=== PATIENT | female | born 1965 | race Caucasian/White ===

== ENCOUNTER 2020-09-15 12:08 | Outpatient (REF) | payer OTHER, SELFPAY | END 2020-09-15 12:09 | disposition home or self-care (01) | LOC: HO.WFDLDS 12:08 | PROVIDERS: Visit Provider Internal Medicine | DX: Z20.822 Contact with and (suspected) exposure to COVID-19 (principal) | CPT/HCPCS: 36415; C9803; U0003 ==

== ENCOUNTER → 2020-12-20 12:45 | Outpatient (BNVA) | payer OTHER, SELFPAY | PROVIDERS: PCP Internal Medicine; Visit Provider Physician Assistant ==

== ENCOUNTER → 2021-01-03 10:12 | Outpatient (BNVA) | payer OTHER, SELFPAY | PROVIDERS: PCP Internal Medicine; Visit Provider Surgery ==

== ENCOUNTER 2021-01-04 10:11 | Outpatient (REF) | payer OTHER, SELFPAY ==
--- NOTE | ~2021-01-04 | XR_ITS ---
EXAMINATION: XR CHEST CLINICAL INFORMATION: Obesity COMPARISON: None TECHNIQUE: 2 views of the chest were obtained. FINDINGS: The cardiac and mediastinal contours are normal. The lungs are clear. There is no pleural effusion or pneumothorax. There are mild degenerative changes of the thoracic spine. XR/XR chest 2V IMPRESSION: No evidence for acute disease in the chest.
--- NOTE | 2021-01-04 10:20 | ECG_ITS ---
Test Reason : MORBID OBESITY Blood Pressure : / mmHG Vent. Rate : 084 BPM Atrial Rate : 084 BPM P-R Int : 162 ms QRS Dur : 094 ms QT Int : 396 ms P-R-T Axes : 054 010 031 degrees QTc Int : 467 ms Normal sinus rhythm Normal ECG No previous ECGs available Referred By: Leonides Carter Electronically Signed By:AMOS VACA
[2021-01-04 10:46] LABS: MANUAL DIFF FLAG NO
[2021-01-04 11:12] LABS: Estimated Average Glucose 312 mg/dL; Hemoglobin A1c % 12.5 %
[2021-01-04 11:13] LABS: Basophils Percent Auto 0.3 % (0-2); Eosinophils Absolute Auto 0.2 X10*3/uL (0.0-0.4); Hematocrit 35.7 % (37-47); Hemoglobin 11.5 g/dl (12.0-16.0); Imm Gran Abs Auto 0.05 X10*3/uL (0.00-0.03); Imm Gran Pct Auto 0.7 % (0.0-0.4); Lymphocytes Percent Auto 28.6 % (20-40); Mean Corpuscular HGB Conc 32.2 g/dl (31.0-35.0); Mean Corpuscular Hemoglobin 26.2 pg (27.0-33.0); Mean Corpuscular Volume 81.3 fL (80-98); Mean Platelet Volume 9.9 fL (9.4-12.3); Monocytes Absolute Auto 0.5 X10*3/uL (0.1-1.2); Monocytes Percent Auto 7.2 % (2-11); Neutrophils Absolute Auto 4.2 X10*3/uL (2.0-8.3); Neutrophils Percent Auto 60.2 % (45-73); Platelet Count 238 X10*3/uL (160-400); Red Blood Count 4.39 X10*6/uL (4.20-5.50); Red Cell Distribution Width 13.7 % (11.0-16.0); White Blood Count 6.9 X10*3/uL (4.8-10.8)
[2021-01-04 11:17] LABS: Alanine Aminotransferase 23 U/L (0-31); Alkaline Phosphatase 107 U/L (39-117); Anion Gap 13 (12-20); Aspartate Amino Transferase 19 U/L (5-31); Bilirubin Total 0.4 mg/dL (0.0-1.0); Blood Urea Nitrogen 36 mg/dL (9-16); C Reactive Protein 0.56 mg/dL (< or = 0.50); Calcium 9.7 mg/dL (8.4-10.2); Carbon Dioxide 31 mmol/L (22-29); Chloride 96 mmol/L (96-108); Cholesterol 197 mg/dL; Estimated Glomerular Filt Rate 47; Glucose Random 297 mg/dL (60-115); HDL Cholesterol 47 mg/dL; Iron 67 mcg/dL (30-160); LDL Cholesterol Calculated 101 mg/dl; Percent Iron Saturation 21 % (15-50); Potassium 4.3 mmol/L (3.3-5.1); Sodium 136 mmol/L (135-145); Total Iron Binding Capacity 318 mcg/dL (228-428); Total Protein 7.1 g/dL (6.5-8.0); Triglycerides 248 mg/dL; Unsaturated Iron Binding 251 ug/dL
[2021-01-04 11:38] LABS: Ferritin 98 ng/mL (10-250); TSH reflex Free T4 0.96 uIU/mL (0.32-4.0)
[2021-01-04 11:52] LABS: Folate 10.2 ng/mL (> or = 4.0); Vitamin B12 463 pg/mL (200-900)
[2021-01-05 09:11] LABS: Insulin Level Total 35.5 uIU/mL
[2021-01-05 13:12] LABS: Calcium (PTHI) 9.8 mg/dL (8.6-10.4); PTHI 35 pg/mL (14-64)
[2021-01-06 18:16] LABS: Zinc 73 mcg/dL (60-130)
[2021-01-08 09:51] LABS: Vitamin A 97 mcg/dL (38-98)
[2021-01-10 10:06] LABS: Vitamin B1 18 nmol/L (8-30)
== END 2021-01-04 10:12 | disposition home or self-care (01) ==
LOC: HO.LAB 10:11
PROVIDERS: PCP Internal Medicine; Visit Provider Surgery
DX: Z01.818 Encounter for other preprocedural examination (principal); K21.9 Gastro-esophageal reflux disease without esophagitis; E66.01 Morbid (severe) obesity due to excess calories; I10 Essential (primary) hypertension; E78.5 Hyperlipidemia, unspecified
CPT/HCPCS: 36415; 71046; 80053; 80061; 82306; 82607; 82728; 82746; 83036; 83525; 83540; 83970; 84425; 84443; 84590; 84630; 85025; 86140; 93005

== ENCOUNTER → 2021-01-24 08:12 | Outpatient (BNVA) | payer OTHER, SELFPAY | PROVIDERS: PCP Internal Medicine; Visit Provider Dietitian, Registered | DX: E66.01 Morbid (severe) obesity due to excess calories (principal); Z68.39 Body mass index [BMI] 39.0-39.9, adult | CPT/HCPCS: 97802 ==

== ENCOUNTER → 2021-01-25 08:27 | Outpatient (BNVA) | payer OTHER, SELFPAY | PROVIDERS: PCP Internal Medicine; Visit Provider Surgery ==

== ENCOUNTER 2021-01-26 08:49 | Outpatient (REF) | payer OTHER, SELFPAY ==
--- NOTE | ~2021-01-26 | US_ITS ---
EXAMINATION: US COMPLETE ABDOMEN WITH LIVER ELASTOGRAPHY CLINICAL INFORMATION: Morbid obesity COMPARISON: None. TECHNIQUE: Real-time imaging of the abdominal viscera. Noninvasive ultrasound liver fibrosis assessment is performed using Dagoberto ElastPQ point quantification shear wave elastography (pSWE) with a C5-2 MHz transducer. Multiple elastography samples are obtained. FINDINGS: PANCREAS: Normal. The visualized pancreatic head and body are normal in appearance. The remainder of the pancreas is obscured from visualization by the overlying bowel gas. ABDOMINAL AORTA: The proximal, middle, and distal aortic segments are normal in caliber. INFERIOR VENA CAVA: Visualized portions are normal. LIVER: There is diffuse increased echogenicity of the liver consistent with fatty infiltration. No focal lesion or intrahepatic biliary duct dilatation. The right lobe measures 19.4 cm in length. The left lobe measures 11.8 cm in length. Portal flow is hepatopedal Shear wave liver elastography median stiffness is 1.49 m/s (reference: normal median stiffness is 1.3 m/s or less). IQR/median stiffness to assess sampling precision is 0.10 (reference: good quality data set is IQR/median stiffness of 0.15 or less). GALLBLADDER: Cholesterol polyp is present. No gallbladder wall thickening or pericholecystic fluid identified. COMMON BILE DUCT: Normal in caliber measuring 0.3 cm in diameter. RIGHT KIDNEY: There is a duplicated collecting system present. No hydronephrosis. No renal calculi or focal parenchymal lesions. The kidney measures 13.4 cm in maximum dimension. LEFT KIDNEY: Normal. No hydronephrosis. No renal calculi or focal parenchymal lesions. The kidney measures 12.6 cm in maximum dimension. SPLEEN: Normal. The spleen measures 11.5 cm in maximum dimension. FREE FLUID: None. US/US abdomen comp w elastography IMPRESSION: Fatty infiltration of the liver. Gallbladder cholesterol polyp. Liver elastography: In the absence of other known clinical signs, measurements rule out compensated advanced chronic liver disease. If there are known clinical signs, further testing may be needed for confirmation. REFERENCE: Society of Radiologists in Ultrasound Liver Stiffness Thresholds (2019): LIVER STIFFNESS THRESHOLDS: *Liver Stiffness equal or less than 1.3 m/s: High probability of being normal. *Liver Stiffness less than 1.7 m/s: In the absence of other known clinical signs, rules out compensated advanced chronic liver disease. *Liver Stiffness 1.7-2.1 m/s: Suggestive of compensated advanced chronic liver disease but need further test for confirmation. *Liver Stiffness over 2.1 m/s: Rules in compensated advanced chronic liver disease. *Liver Stiffness over 2.4 m/s: Suggestive of clinically significant portal hypertension. QUALITY OF DATA SET: *IQR/Median value equal or less than 0.15 implies a quality data set. *IQR/Median value over 0.15 implies a poor quality data set. SIGNIFICANT CHANGE FROM PRIOR EXAM: Significant change if liver stiffness measurement is 10% or greater from prior exam. OTHER CONSIDERATIONS: The stage of liver fibrosis may be overestimated in the setting of acute hepatitis, liver inflammation, elevated liver function tests, hepatic vascular congestion, obstructive cholestasis, non-fasting state, and infiltrative diseases such as amyloidosis and lymphoma. In some patients with NAFLD, the liver stiffness thresholds for compensated advanced chronic liver disease may be lower. In causes other than viral hepatitis and NAFLD, liver stiffness thresholds are not well established.
--- NOTE | ~2021-01-26 | FL_ITS ---
EXAMINATION: XR UPPER GI SERIES CLINICAL INFORMATION: Morbid obesity. COMPARISON: None TECHNIQUE: Air-contrast upper GI examination. FINDINGS: There is normal apposition of the vocal cords while saying E. There is normal elevation of the soft palate while saying candy. Patient swallowed thin and thick barium without difficulty. Half-inch barium tablet passed readily without evidence of esophageal stricture. No nasopharyngeal reflux or tracheal aspiration was elicited. No Zenker's diverticulum or cricopharyngeal hypertrophy is seen. There is normal esophageal motility without mucosal abnormality. No hiatal hernia. No gastroesophageal reflux was elicited including with water siphon test. The stomach appeared unremarkable with normal distensibility and no evidence of ulceration or mass. There was no delay in gastric emptying. The duodenal bulb and sweep appeared unremarkable. FLUOROSCOPY TIME: 1.9 minutes DOSE AREA PRODUCT: 15.525 Gy-cm2 (enriquez-centimeter squared) FL/FL upper GI series IMPRESSION: Normal air-contrast upper GI examination.
[2021-01-27 13:37] LABS: H Pylori Breath Test NOT DETECTED (NOT DETECTED)
== END 2021-01-26 08:50 | disposition home or self-care (01) ==
LOC: HO.US 08:49
PROVIDERS: Physician Assistant; Visit Provider Surgery
DX: Z01.818 Encounter for other preprocedural examination (principal); E66.01 Morbid (severe) obesity due to excess calories; K21.9 Gastro-esophageal reflux disease without esophagitis; I10 Essential (primary) hypertension; E78.5 Hyperlipidemia, unspecified
CPT/HCPCS: 74240; 76705; 76981; 83013; 99211

== ENCOUNTER → 2021-02-16 07:53 | Outpatient (BNVA) | payer OTHER, SELFPAY | PROVIDERS: PCP Internal Medicine; Visit Provider Surgery ==

== ENCOUNTER → 2021-03-03 13:05 | Outpatient (BNVA) | payer OTHER, SELFPAY | PROVIDERS: PCP Internal Medicine; Visit Provider Physician Assistant ==

== ENCOUNTER 2021-03-08 23:45 | Inpatient (IN) | payer OTHER, SELFPAY ==
[2021-02-28 13:43] VITALS: BMI 37.3
[2021-03-02 10:10] LABS: MANUAL DIFF FLAG NO
[2021-03-02 10:20] LABS: Basophils Percent Auto 0.4 % (0-2); Eosinophils Absolute Auto 0.2 X10*3/uL (0.0-0.4); Eosinophils Percent Auto 3.2 % (0-4); Hematocrit 32.7 % (37-47); Hemoglobin 10.9 g/dl (12.0-16.0); Imm Gran Abs Auto 0.01 X10*3/uL (0.00-0.03); Imm Gran Pct Auto 0.2 % (0.0-0.4); Lymphocytes Percent Auto 35.3 % (20-40); Mean Corpuscular HGB Conc 33.3 g/dl (31.0-35.0); Mean Corpuscular Hemoglobin 27.7 pg (27.0-33.0); Mean Platelet Volume 9.8 fL (9.4-12.3); Monocytes Absolute Auto 0.4 X10*3/uL (0.1-1.2); Monocytes Percent Auto 7.7 % (2-11); Neutrophils Percent Auto 53.2 % (45-73); Platelet Count 238 X10*3/uL (160-400); Red Blood Count 3.94 X10*6/uL (4.20-5.50); White Blood Count 5.6 X10*3/uL (4.8-10.8)
[2021-03-02 10:24] LABS: Prothrombin Time 12.3 SEC (10.8-13.0)
[2021-03-02 10:26] LABS: Partial Thromboplastin Time 38.4 SEC (24.1-38.0)
[2021-03-02 10:36] LABS: Alanine Aminotransferase 26 U/L (0-31); Albumin Level 4.1 g/dL (3.5-5.0); Alkaline Phosphatase 74 U/L (39-117); Anion Gap 14 (12-20); Aspartate Amino Transferase 27 U/L (5-31); Bilirubin Total 0.7 mg/dL (0.0-1.0); Blood Urea Nitrogen 53 mg/dL (9-16); C Reactive Protein 0.76 mg/dL (< or = 0.50); Carbon Dioxide 28 mmol/L (22-29); Chloride 104 mmol/L (96-108); Cholesterol 146 mg/dL; Creatinine Clr Calc Pharmacy 51.7; Estimated Glomerular Filt Rate 36; Glucose Random 93 mg/dL (60-115); HDL Cholesterol 34 mg/dL; LDL Cholesterol Calculated 85 mg/dl; Potassium 4.5 mmol/L (3.3-5.1); Sodium 141 mmol/L (135-145); Triglycerides 139 mg/dL
[2021-03-02 11:02] LABS: Estimated Average Glucose 174 mg/dL; Hemoglobin A1c % 7.7 %
--- NOTE | 2021-03-08 08:43 | HO.ANESPROP2 ---
Documented by User: Nadia Mcnamara 03/08/21 08:45 HPI - Anesthesia Eval Consult details Narrative: 55yo F for Gastrectomy Sleeve, EGD, Poss Diaphragmatic Hernia, Poss Ventral Hernia, Poss open PMFSH Active Problems Active Problems: All Active Problems (Updated 03/04/21 @ 01:38 by Leonides Carter MD) Hyperthyroidism (Acute) Constipation (Acute) Obesity (Acute) BMI 38.0-38.9,adult (Acute) Preprocedural examination (Acute) GERD (gastroesophageal reflux disease) (Acute) Depression (Acute) Hyperlipidemia (Acute) Hypertension (Acute) Insulin dependent diabetes mellitus (Acute) Morbid obesity (Acute) Insomnia (Acute) Past Medical History Medical History Anemia Arthritis Asthma Chronic renal insufficiency Depression GERD (gastroesophageal reflux disease) History of neuropathy History of tachycardia Hyperlipidemia Hypertension Insomnia Insulin dependent diabetes mellitus Morbid obesity Surgical History Surgical History H/O colonoscopy History of carpal tunnel release Hx of appendectomy Hx of breast lump removal Hx of left inguinal hernia repair Hx of thumb surgery Hx of tubal ligation Social History Social History Are you a primary director of managed care to a significant other at home: No Do you presently have visiting nurse or other home services: Yes Patient Tobacco Use Status: Former Tobacco user Quit Date: age 20 Tobacco use type: Cigarette Use of substances other than those prescribed or required for medical reasons: No Have you been hit, kicked, punched, or otherwise hurt by someone within the past year? If so, by whom?: No Are you DNR?: No Advance Directives: Yes Advance Directives Information Provided: Yes (states is & will bring copy day of surgery) Advance Directives on File: No Advance Directives Date on File: 03/09/21 Recently lost weight without trying: No Eating poorly because of decreased appetite: No Nutrition Risks: No Nutritional Risk Patient : No Poor oral hygiene: No (adentulous) Meds Allergies Allergy/AdvReac Type Severity Reaction Status Date / Time lockett flavor Allergy Intermediate Hives Verified 03/09/21 13:02 morphine Allergy Intermediate bradycardia Verified 03/09/21 13:02 NSAIDS (Non-Steroidal Allergy Intermediate tachycardia Verified 03/09/21 13:02 Anti-Inflamma Home Medications Medication Instructions Recorded Confirmed Last Taken Type atorvastatin 40 mg tablet 40 mg PO DAILY 01/03/21 03/09/21 Unknown History carvedilol 12.5 mg tablet 12.5 mg PO BID 01/03/21 03/09/21 Unknown History citalopram 40 mg tablet 40 mg PO DAILY 01/03/21 03/09/21 03/09/21 10:00 History insulin glargine 100 unit/mL (3 10 unit SUBCUT BID 01/03/21 03/09/21 Unknown History mL) subcutaneous pen melatonin 5 mg capsule See Rx Instructions PO .COMPLEX 01/03/21 03/09/21 Unknown History montelukast 10 mg tablet 10 mg PO BEDTIME 01/03/21 03/09/21 Unknown History cyclobenzaprine 10 mg PO BID 02/28/21 03/09/21 Unknown History Lantus Solostar U-100 Insulin 03/09/21 03/02/21 History olmesartan 1 tab PO DAILY 03/09/21 03/09/21 Unknown History Exam Exam Date and Time: March 08, 2021 0843 Height,Weight and Vital Signs: Height 5 ft 5.5 in Weight 103.419 kg Pertinent Lab Results Pertinent Lab Results: Laboratory Tests 03/02/21 03/02/21 03/02/21 09:40 09:40 09:40 WBC 5.6 RBC 3.94 L Hgb 10.9 L Hct 32.7 L MCV 83.0 MCH 27.7 MCHC 33.3 RDW 15.0 Plt Count 238 MPV 9.8 Immature Gran % (Auto) 0.2 Neut % (Auto) 53.2 Lymph % (Auto) 35.3 Imperial % (Auto) 7.7 Eos % (Auto) 3.2 Baso % (Auto) 0.4 Lymph # (Auto) 2.0 Imperial # (Auto) 0.4 Eos # (Auto) 0.2 Baso # (Auto) 0.0 Abs Immat Gran (auto) 0.01 Absolute Neuts (auto) 3.0 Absolute Nucleated RBC 0.000 Nucleated RBC % (auto) 0.0 PT 12.3 INR 1.0 APTT 38.4 H Sodium 141 Potassium 4.5 Chloride 104 Carbon Dioxide 28 Anion Gap 14 BUN 53 H Creatinine 1.50 H Estim Creat Clear Calc 51.7 Estimated GFR 36 Random Glucose 93 D Estimat Average Glucose Hemoglobin A1c % Total Insulin Calcium 10.0 Total Bilirubin 0.7 AST 27 D ALT 26 Alkaline Phosphatase 74 D C-Reactive Protein 0.76 H Total Protein 7.0 Albumin 4.1 Triglycerides 139 Cholesterol 146 D LDL Cholesterol, Calc 85 HDL Cholesterol 34 D TSH 0.10 L Free T4 1.10 Blood Type Antibody Screen 03/02/21 03/02/21 03/02/21 09:40 09:40 09:40 WBC RBC Hgb Hct MCV MCH MCHC RDW Plt Count MPV Immature Gran % (Auto) Neut % (Auto) Lymph % (Auto) Imperial % (Auto) Eos % (Auto) Baso % (Auto) Lymph # (Auto) Imperial # (Auto) Eos # (Auto) Baso # (Auto) Abs Immat Gran (auto) Absolute Neuts (auto) Absolute Nucleated RBC Nucleated RBC % (auto) PT INR APTT Sodium Potassium Chloride Carbon Dioxide Anion Gap BUN Creatinine Estim Creat Clear Calc Estimated GFR Random Glucose Estimat Average Glucose 174 Hemoglobin A1c % 7.7 Total Insulin 7.0 Calcium Total Bilirubin AST ALT Alkaline Phosphatase C-Reactive Protein Total Protein Albumin Triglycerides Cholesterol LDL Cholesterol, Calc HDL Cholesterol TSH Free T4 Blood Type O Positive Antibody Screen NEGATIVE Narrative Narrative: EKG 12/2020 Vent. Rate : 084 BPM Atrial Rate : 084 BPM P-R Int : 162 ms QRS Dur : 094 ms QT Int : 396 ms P-R-T Axes : 054 010 031 degrees QTc Int : 467 ms Normal sinus rhythm Normal ECG No previous ECGs available Assessment and Plan Assessment Anesthesia Assessment: Chart Reviewed Documented by User: Jon Broderick MD 03/09/21 14:08 [facility] Past Medical History Medical History Anemia Arthritis Asthma Chronic renal insufficiency Depression GERD (gastroesophageal reflux disease) History of neuropathy History of tachycardia Hyperlipidemia Hypertension Insomnia Insulin dependent diabetes mellitus Morbid obesity Surgical History Surgical History H/O colonoscopy History of carpal tunnel release Hx of appendectomy Hx of breast lump removal Hx of left inguinal hernia repair Hx of thumb surgery Hx of tubal ligation Social History Social History Are you a primary director of managed care to a significant other at home: No Do you presently have visiting nurse or other home services: Yes Patient Tobacco Use Status: Former Tobacco user Quit Date: age 20 Tobacco use type: Cigarette Use of substances other than those prescribed or required for medical reasons: No Have you been hit, kicked, punched, or otherwise hurt by someone within the past year? If so, by whom?: No Are you DNR?: No Advance Directives: Yes Advance Directives Information Provided: Yes (states is & will bring copy day of surgery) Advance Directives on File: No Advance Directives Date on File: 03/09/21 Recently lost weight without trying: No Eating poorly because of decreased appetite: No Nutrition Risks: No Nutritional Risk Patient : No Poor oral hygiene: No (adentulous) Meds Allergies Allergy/AdvReac Type Severity Reaction Status Date / Time lockett flavor Allergy Intermediate Hives Verified 03/09/21 13:02 morphine Allergy Intermediate bradycardia Verified 03/09/21 13:02 NSAIDS (Non-Steroidal Allergy Intermediate tachycardia Verified 03/09/21 13:02 Anti-Inflamma Home Medications Medication Instructions Recorded Confirmed Last Taken Type atorvastatin 40 mg tablet 40 mg PO DAILY 01/03/21 03/09/21 Unknown History carvedilol 12.5 mg tablet 12.5 mg PO BID 01/03/21 03/09/21 Unknown History citalopram 40 mg tablet 40 mg PO DAILY 01/03/21 03/09/21 03/09/21 10:00 History insulin glargine 100 unit/mL (3 10 unit SUBCUT BID 01/03/21 03/09/21 Unknown History mL) subcutaneous pen melatonin 5 mg capsule See Rx Instructions PO .COMPLEX 01/03/21 03/09/21 Unknown History montelukast 10 mg tablet 10 mg PO BEDTIME 01/03/21 03/09/21 Unknown History cyclobenzaprine 10 mg PO BID 02/28/21 03/09/21 Unknown History Lantus Solostar U-100 Insulin 03/09/21 03/02/21 History olmesartan 1 tab PO DAILY 03/09/21 03/09/21 Unknown History Exam Airway Mallampati Class: II TM Dist: >3cm Neck ROM: Full Heart: RRR Lungs: NL Assessment and Plan Assessment Anesthesia Assessment: Anesthesia Plan Discussed and Chart Reviewed Final Anesthetic Review NPO: Yes ASA Class: III Final Preanesthetic Review: No Changes in Pt Med Stat, Meds/Allgs Chart Reviewed, Consent Obtained/Reviewed and Anes Risks/Benef Reviewed Patient Risk: High Procedure Risk: Low Anesthetic Plan Anesthetic Plan: GA Disposition: Standard PACU
--- NOTE | 2021-03-08 23:43 | MHC.SHP ---
Pre-Procedural Eval Section A Date of Service: 03/08/21 The patient is an INPATIENT: Yes The History & Physical has been completed within 30 days and I have reviewed it.: Yes Section B Chief Complaint: Morbid Severe Obesity Details of Present Illness: obesity Relevant Family History (Specify if Yes): No Relevant Social History: None Present Medications: None Medical History: No relevant PMH History of Previous Operations: No relevant previous surgery Allergies: Allergies Allergy/AdvReac Type Severity Reaction Status Date / Time lockett flavor Allergy Intermediate Hives Verified 02/28/21 12:02 morphine Allergy Intermediate bradycardia Verified 02/28/21 12:02 NSAIDS (Non-Steroidal Allergy Intermediate tachycardia Verified 02/28/21 12:02 Anti-Inflamma Review of Systems Sugical H&P ROS: Negative: Constitution, Cardiovascular, Respiratory, Neurological, Psychiatric, Hem-Onc, Allergic/Immunologic, Gastrointestinal, Genitourinary, Musculoskeletal, Integumentary, Endocrine and Eyes/Ears/Nose/Throat Exam Surgical H&P Exam: Normal: HEENT, Normal: Heart, Normal: Lungs, Normal: Extremities, Normal: Abdomen, Normal: Skin and Normal: Neurological Plan Diagnosis/Plan: Unchanged I have reviewed the history and physical and performed a pertinent physical examination on my patient. No changes have occurred unless specified.
[2021-03-09] VITALS (11 sets, daily range): BP systolic 150–183; BP diastolic 81–100; PULSE 72–91; RESP 14–18; TEMP 35.7–36.6; O2SAT 97–100
[2021-03-09 13:36] LABS: COVID-19 Test Negative (Negative); IDNOW Serial# 9DD0AD1C
[2021-03-09 13:55] LABS: Glucose, Whole Blood 71 mg/dL (60-115)
[2021-03-09] MEDS: Lactated Ringers 1,000 ML 100 ML IVCONT (14:03)
[2021-03-09] MEDS: Lactated Ringers 1,000 ML 999 ML IV (14:03)
--- NOTE | 2021-03-09 15:02 | P.BOP_ITS ---
Brief Operative Note Date of Service: 03/09/21 Pre-op diagnosis: Severe obesity and comorbidities (see below) Post-op diagnosis: same (& diaphragmatic hernia) Procedure: INITIAL PATIENT BMI ON PRESENTATION AT OUR OFFICE: 41.5 kg/m2 LAST BMI BEFORE SURGERY: 37.7 kg/m2 COMORBIDITIES: Insulin dependent diabetes, hypertension, hyperlipidemia, GERD, depression, insomnia, liver fibrosis, liver steatosis The patient participated in an intensive weekly lifestyle intervention and exercise program during which the patient has lost between the initial office visit and the last preoperative visit 28.9lbs, or 11.21% of initial actual body weight. The patient met the BMI-criteria for bariatric surgery based on the BMI on initial presentation. The patient should not be penalized for achieving such weight loss because it is not sustainable long-term without surgical intervention and it was achieved in preparation for bariatric surgery under my direction and based on my published research ([email or web address] and [email or web address]) that a 10% preoperative weight loss improves long-term weight loss after surgery and reduces perioperative complications. Insurance carriers such as [facility] have endorsed my recommendations and have included in their policies criteria to include a 10% preoperative weight loss requirement. PROCEDURE: Esophago-gastroscopy, laparoscopic repair of incarcerated diaphragmatic hernia, laparoscopic lysis of adhesions, laparoscopic sleeve gastrectomy and laparoscopic gastropexy INDICATIONS: This is a 55 year-old female who was electively scheduled for laparoscopic, possibly open sleeve gastrectomy. The risks and complications of the procedure were discussed with the patient in advance, particularly the possibility of ; pulmonary embolism; staple line leak; bleeding; GERD; cardiac, pulmonary, or renal complications; as well as long-term problems such as insufficient weight loss, vitamin deficiency, strictures, or ulcers. The patient understood all the risks, and was in agreement to proceed with surgery. DESCRIPTION OF PROCEDURE: After informed consent was obtained from the patient, the patient was given preoperative antibiotics, and was transferred to the operating room. After successful induction of general anesthesia, a Taylor catheter and pneumatic compressive devices were placed on both lower extremities. An upper endoscopy was performed next. The oropharynx and esophagus appeared to be within normal limits. There was a diaphragmatic hernia present that was not reported at the preoperative upper GI. The stomach was entered. Then after all fluid and air were suctioned and the stomach was fully decompressed, the scope was withdrawn and secured in the mid esophagus. The patient was then prepped and draped in the usual sterile manner, and abdominal access was established at the right upper quadrant with the Charly technique. A 12 mm blunt port was inserted, and the abdomen was insufflated with CO2 to a pressure of 15 mmHg. Under direct visualization, additional ports were placed, specifically two 5 mm Versi-step ports to the left upper quadrant, and a 5 mm Versi-Step port to the right upper quadrant. 1% lidocaine plan was used to infiltrate all port sites as well as all fascia defects. Following that, the patient was placed in a steep reverse Trendelenburg position. An additional 5 mm port was placed to the right flank for the Mediflex retractor that was used to retract the left lobe of the liver. The gastro-esophageal fat pad was opened with the ultrasonic device (Thunderbeat, Olympus) and the anterior esophagus and hiatus were exposed. The angle of His was opened with the ultrasonic device the fundus of the stomach from any diaphragmatic and splenic attachments. I then opened the gastrocolic ligament between the transverse colon and the greater curvature of the stomach with the ultrasonic device to enter the lesser sac and facilitate the ligation of the short gastric vessels. I started at a mid-point along the greater curvature and using the Thunderbeat, all short gastric vessels were divided all the way to the angle of His until the left keven was completely dissected at its entirety. I then divided the gastro-colic ligament distally to a distance of about 3-4 cm proximal to the esophagus. There were extensive congenital adhesions between the pancreas and posterior gastric wall. Those were lysed completely with the ultrasonic device. Adhesiolysis took approximately 45 min to complete. There was an obvious significant-sized hiatal hernia. I continued dissecting along the hiatus toward the left keven and the angle of His. I fully mobilized the fat pad that was incarcerated in the hernia. I then continued by dissecting even further into the posterior retro-esophageal space all the way to the angle of His. I continued to mobilize the esophagus into the mediastinum circumferentially. Both vagal nerves were seen and preserved. A large vessel at the pars flaccida was preserved. At that point, I was able to have at least 3 to 5 cm of esophagus into the abdomen. After I completely mobilized the esophagus from both the left and right keven and I had a good mobilization of the esophagus circumferentially, I closed the hernia defect with two interrupted #0 Surgidac sutures using the Endo Stitch device, one of which was placed posterior and one anterior to the esophagus. The stomach was then divided transversely with one Endo TOMI-45 purple, one TOMI- 45 orange and four TOMI-60 articulating orange loads using the AEON stapler and loads. Every effort was made that the gastric sleeve had a tubular shape and an even caliber throughout. Once the sleeve resection was completed, the staple line of the gastric sleeve was reinforced with Hemoclips. The resected stomach was retrieved without difficulty from the Charly port. A gastropexy was then performed in order to prevent postoperative GERD and partial gastric volvulus. Several interrupted 2.0 Surgidac sutures were placed between the sleeve's staple line and the previously divided greater omentum and gastro-colic ligament using the Endo-Stitch device. An upper endoscopy was performed. There was no narrowing at the GE junction. The scope was easily advanced all the way to the pylorus which was clearly visualized. There was no narrowing anywhere and the sleeve's caliber was even throughout. The sleeve's staple line was inspected and there was no evidence of ischemia, bleeding or dehiscence. At that point the gastroscope was withdrawn from the patient?s mouth while we were decompressing the bowel and the stomach from any remaining air. I looked into the lesser sac to see how the sleeve was situating and it was situating well. There was no bleeding from the staple line, spleen, or short gastric vessels. The Mediflex retractor was removed, and the undersurface of the liver was inspected and there was no bleeding. The patient was placed in supine position. I closed the fascial defect of the 12 mm port site with a figure of eight #1 Polysorb suture. Then 100 cc 0.25 % Marcaine plain with 10 mg of Dexamethasone were used to infiltrate the fascial closure as well as all skin incisions. At this point, the abdomen was deflated, all ports were removed under direct vision, and no bleeding was noted from any of the port sites. The skin incisions were irrigated with saline and were closed with 4-0 absorbable monofilament sutures. Steri-Strips and OpSites were used to cover all incisions. The patient was extubated and was transferred in stable condition to the recovery room for further care. I was present and performed all yanes parts of the procedure. Ms. Kwok was the assistant manager airside operations. There were no residents to assist with this case. Dimitris Carter MD, PhD, FACS Surgeon: Leonides Carter MD Anesthesia: GETA, local and other (TAP block) Was an [employer] Counter Assistant used for this Procedure?: No [employer] Counter Assistant: Chrissy Kwok Estimated blood loss (mL): 10 IV fluids (mL): 2,700 Urine output (mL): 0 (No Taylor to record) Pathology: other (Stomach) Condition: stable Disposition: PACU
--- NOTE | 2021-03-09 15:05 | PM.PNGS ---
Subjective Subjective Date of Service: 03/10/21 Interval history: Patient had mild incisional pain but was able to ambulate and use the incentive spirometer. Is tolerating phase 1 bariatric diet. Physical Exam Vital Signs: Vital Signs: Last Vital Signs Temp 97.0 F 03/09/21 13:27 Pulse 85 03/09/21 13:27 Resp 16 03/09/21 13:27 BP 169/94 H 03/09/21 13:27 Pulse Ox 99 03/09/21 13:27 Body Mass Index 37.3 GI: Inspection: Yes normal to inspection, Yes incision (clean, dry and intact) and Yes obesity Extrem: Right lower extremity: normal to inspection (no calf tenderness) Left lower extremity: normal to inspection (no calf tenderness) Progress Note: A&P Assessment and plan (1) Obesity: Status: Acute Assessment and Plan: s/p laparoscopic sleeve gastrectomy and gastropexy Doing well Check am labs. If OK, will discharge home (2) BMI 37.0-37.9, adult: Status: Acute (3) Hyperlipidemia: Status: Acute (4) GERD (gastroesophageal reflux disease): Status: Acute (5) Depression: Status: Acute (6) Hypertension: Status: Acute (7) Insulin dependent diabetes mellitus: Status: Acute (8) Insomnia: Status: Acute (9) Liver fibrosis: Status: Acute (10) Steatosis, liver: Status: Acute (11) S/P laparoscopic sleeve gastrectomy: Status: Acute (12) Status post repair of paraesophageal diaphragmatic hernia: Status: Acute (13) Diaphragmatic hernia: Status: Acute (14) Congenital intra-abdominal adhesions: Status: Acute Fall Risk Details Current Medications: Current Medications Generic Name Dose Route Start Last Admin Trade Name Freq PRN Reason Stop Dose Admin Albuterol Sulfate 2.5 mg 03/09/21 12:53 Albuterol Sulfate (0.083%) 2.5 Mg/3 Ml Vial.Neb INHALE ONCE PRN Shortness of Breath/Wheezing Hydromorphone HCl 0.25 mg 03/09/21 14:08 Hydromorphone Hcl 0.5 Mg/0.5 Ml Syringe IVPUSH Q5M PRN Pain, Severe (Pain Scale 7-10) Lactated Ringer's 1,000 mls @ 100 mls/hr 03/09/21 13:00 03/09/21 14:03 Lr IVCONT 100 mls/hr .Q10H REY Administration Promethazine HCl 12.5 mg/ 50.5 mls @ 202 mls/hr 03/09/21 14:08 Sodium Chloride IV ONCE PRN Nausea and Vomiting Ketorolac Tromethamine 15 mg 03/09/21 14:08 Ketorolac Tromethamine 15 Mg/Ml Vial IVPUSH ONCE PRN Pain, Moderate (Pain Scale 4-6 Ondansetron HCl 4 mg 03/09/21 14:08 Ondansetron Hcl 4 Mg/2 Ml Vial IVPUSH ONCE PRN Nausea and Vomiting Oxycodone HCl 5 mg 03/09/21 14:08 Oxycodone Hcl Immed Release 5 Mg Tablet PO ONCE PRN Pain, Severe (Pain Scale 7-10) Time Spent With Patient Time: Total time spent is greater than 50% in coordination of care (as documented) at patient's floor/unit and/or counseling patient: Time with patient: less than 15 minutes Procedures Date of Service Date of Service: 03/10/21 Quality Stroke Does the patient have a stroke diagnosis?: No VTE Prior VTE?: No VTE Risk Level:: Surgical - moderate VTE Device Contraindication: N/A - Device Ordered VTE Drug Contraindication: Treatment Not Indicated
--- NOTE | 2021-03-09 18:08 | P.DS_ITS ---
DS: Providers Provider Date of Service: 03/10/21 Date of admission: 03/08/21 23:45 Primary care physician: Beryl Marie MD DS: Diagnosis Discharge Diagnosis (1) Obesity: Status: Acute (2) BMI 37.0-37.9, adult: Status: Acute (3) Hyperlipidemia: Status: Acute (4) GERD (gastroesophageal reflux disease): Status: Acute (5) Depression: Status: Acute (6) Hypertension: Status: Acute (7) Insulin dependent diabetes mellitus: Status: Acute (8) Insomnia: Status: Acute (9) Liver fibrosis: Status: Acute (10) Steatosis, liver: Status: Acute DS: Medications Discharge Medications Home Medications: Home Medications Medication Instructions Recorded Confirmed atorvastatin 40 mg tablet 40 mg PO DAILY 01/03/21 03/09/21 carvedilol 12.5 mg tablet 12.5 mg PO BID 01/03/21 03/09/21 citalopram 40 mg tablet 40 mg PO DAILY 01/03/21 03/09/21 insulin glargine 100 unit/mL (3 10 unit SUBCUT BID 01/03/21 03/09/21 mL) subcutaneous pen melatonin 5 mg capsule See Rx Instructions PO .COMPLEX 01/03/21 03/09/21 montelukast 10 mg tablet 10 mg PO BEDTIME 01/03/21 03/09/21 cyclobenzaprine 10 mg PO BID 02/28/21 03/09/21 Lantus Solostar U-100 Insulin 03/09/21 olmesartan 1 tab PO DAILY 03/09/21 03/09/21 Previous Rx's Medication Instructions Recorded ondansetron HCl 4 mg tablet 4 mg PO Q12H #20 tab 02/27/21 pantoprazole 40 mg tablet,delayed 40 mg PO DAILY #30 tab 02/27/21 release sucralfate 100 mg/mL oral 10 ml PO BID #400 ml 02/27/21 suspension DS: Summary Time Spent with Patient Time attestation: ADMITTING DIAGNOSIS: morbid obesity, IDDM, HTN, hyperlipidemia, GERD, diaphragmatic hernia, depression DISCHARGE DIAGNOSIS: same, s/p laparoscopic sleeve gastrectomy and repair diaphragmatic hernia PAST SURGICAL HISTORY: open appendectomy, ventral hernia repair with mesh PROCEDURE: upper endoscopy, laparoscopic sleeve gastrectomy and repair of diaphragmatic hernia hernia DISCHARGE SUMMARY: History of Present Illness: The patient is a 55 year-old woman with a BMI of 41.5 kg/m2 and associated co- morbidities as described above. The patient had extensive work-up,lost 26.3 lbs preoperatively and was electively scheduled for laparoscopic, possible open sleeve gastrectomy and gastropexy. Risks and complications of the surgery were discussed with the patient in advance, particularly the possibility of , pulmonary embolism, anastomotic leak, bleeding, bowel injury, GERD, cardiac, renal or pulmonary complications. The patient understood all the risks and was in agreement with the surgical plan. Hospital Course: The patient underwent an uneventful laparoscopic sleeve gastrectomy with gastropexy and repair of diaphragmatic hernia on the day of admission. Postoperatively, the patient was transferred to the surgical floor. The patient was on IV Acetaminophen and IV dilaudid for pain control. Patient was started on bariatric phase 1 diet POD #0. On postoperative day one, the patient was feeling well without nausea, vomiting, fevers, or tachycardia. The patient had some mild incisional pain. The abdomen was soft. On the morning of postoperative day one, the patient was continued on 1 ounce of water or ice every half hour. During the first day, the patient did fairly well, having some incisional pain, but able to ambulate adequately and to tolerate liquids well. Since the patient is doing well, we decided that the patient was ready to be discharged. The patient was given instructions to follow-up with me next week and to call my office for any fever over 101, persistent abdominal pain, nausea, vomiting, GERD, symptoms of DVT such as calf tenderness, or leg swelling, or pulmonary embolism such as chest pain or shortness of breath. The patient was al so instructed to drink 40-60 ounces of liquids per day using the 1-ounce cups. The patient was given prescription for Tylenol for pain, Zofran prn for nausea, and pantoprazole and carafate. The patient was encouraged to ambulate and use the incentive spirometer. The patient was allowed to shower, but no baths, and encouraged to stay active at home. All of these instructions were given to the patient personally. All questions were answered and the patient understood all instructions, the instructions were also given to the patient in print. Total time spent providing and/or coordinating discharge services: 15 Discharge coordination time: Less than 30 minutes Quality: Stroke Does the patient have a stroke diagnosis?: No Physical Exam Vital Signs: Vital Signs: Last Vital Signs Temp 97.0 F 03/09/21 13:27 Pulse 85 03/09/21 13:27 Resp 16 03/09/21 13:27 BP 169/94 H 03/09/21 13:27 Pulse Ox 99 03/09/21 13:27 Body Mass Index 37.3 DS: Data Data Completed and Pending Pending studies at discharge: Pending at discharge 03/09/21 17:38 Surgical [PTH] Routine Labs on day of discharge: Laboratory Results - last 24 hr 03/09/21 03/09/21 13:00 13:27 POC Glucose 71 COVID-19 (KEELY) Negative COVID-19 Clin Com See Note Discharge Plan Discharge Anticipated Discharge Date/Time: 03/10/21 12:05 Patient Disposition: Home, Self-Care Discharge Diagnosis: s/p sleeve gastrectomy Referrals: Beryl Marie MD [Primary Care Provider] - 1 Week Discharge Medications: Continued pantoprazole 40 mg tablet,delayed release (DR/EC) 40 mg PO DAILY Qty: 30 RF: 2 sucralfate 100 mg/mL suspension 10 ml PO BID Qty: 400 RF: 2 ondansetron HCl [Zofran] 4 mg tablet 4 mg PO Q12H Qty: 20 RF: 0 cyclobenzaprine 10 mg Tablet 10 mg PO BID RF: 0 olmesartan 40 mg tablet 1 tab PO DAILY RF: 0 citalopram 40 mg tablet 40 mg PO DAILY RF: 0 atorvastatin 40 mg tablet 40 mg PO DAILY RF: 0 carvedilol 12.5 mg tablet 12.5 mg PO BID RF: 0 montelukast 10 mg tablet 10 mg PO BEDTIME RF: 0 melatonin 5 mg capsule See Rx Instructions PO .COMPLEX RF: 0 Held Lantus Solostar U-100 Insulin 100 unit/mL (3 mL) insulin pen 10 unit subcut BID RF: 0 Hold Instructions: Discuss insulin dosage with Dr Carter Discontinued Lantus Solostar U-100 Insulin RF: 0 Discharge Orders: Discharge Order (Routine); Ordered 03/10/21 Ordered By: Leonides Carter Diet: other Activity on Discharge: No heavy lifting Stand Alone Forms: Patient Portal Discharge page Activity Restrictions/Additional Instructions: No tub baths, sex or returning to work until discussed at first post op appointment. No exercise, alcohol, tobacco or illegal drug use. Continue to use incentive spirometer hourly while awake. Walk in home for 5- 10 minutes every 2 hours during the first week. Continue phase 1 diet today and start phase 2 diet tomorrow morning. Follow all instructions in the bariatric handbook and call with any questions. The patient's medical history has been reviewed and they are considered low risk for post op DVT and therefore DVT prophylaxis is not considered necessary. Travel after surgery was reviewed. The patient has not disclosed any travel plans during the first 30 days after surgery and they have been advised that within the first 30 days after surgery any bus, plane, train or car travel over 2 hours in duration is contraindicated due to the possibility of developing blood clots from immobility. Any travel, needs to include periods of ambulation of 10 minutes in duration every 2 hours. The patient was instructed to discuss any plans for travel during this period with their bariatric surgeon. Care Plan Goals: weight loss Health Concerns: morbid obesity Plan of Treatment: see discharge instructions Assessment: stable pod # 1 s/p sleeve gastrectomy
[2021-03-09 18:09] LABS: Glucose, Whole Blood 120 mg/dL (60-115)
[2021-03-09] MEDS: Labetalol HCL 100 MG/20 ML VIAL 10 MG IVPUSH (18:18)
[2021-03-09] MEDS: ondansetron HCL 4 MG/2 ML VIAL IVPUSH (18:40)
[2021-03-09] MEDS: Famotidine/PF 20 MG/2 ML VIAL IVPUSH (18:44)
--- NOTE | 2021-03-09 18:48 | PC.NURSE ---
MEDICATED FOR NAUSEA
[2021-03-09 19:07] LABS: Hematocrit 32.7 % (37-47); Hemoglobin 10.8 g/dl (12.0-16.0)
[2021-03-09 19:31] LABS: Anion Gap 18 (12-20); Blood Urea Nitrogen 34 mg/dL (9-16); Calcium 9.1 mg/dL (8.4-10.2); Carbon Dioxide 21 mmol/L (22-29); Chloride 105 mmol/L (96-108); Creatinine Clr Calc Pharmacy 52.4; Estimated Glomerular Filt Rate 37; Glucose Random 132 mg/dL (60-115); Potassium 4.4 mmol/L (3.3-5.1); Sodium 140 mmol/L (135-145)
[2021-03-09 19:40] LABS: Glucose, Whole Blood 140 mg/dL (60-115)
[2021-03-09] MEDS: Lactated Ringers 1,000 ML 125 ML IVCONT (19:46)
[2021-03-09] MEDS: ceFAZolin Sodium/Dextrose,Iso 2 GM/50 ML PIGGYBACK IV (21:23)
[2021-03-09] MEDS: carvediloL 12.5 MG TABLET PO (21:29)
[2021-03-09] MEDS: Montelukast Sodium 10 MG TABLET PO (21:29)
[2021-03-09] MEDS: Cyclobenzaprine HCl 10 MG TABLET PO (21:29)
[2021-03-09 22:50] LABS: Glucose, Whole Blood 187 mg/dL (60-115)
[2021-03-09] MEDS: Insulin Lispro 100 UNIT/ML 3 ML VIAL SUBCUT (22:55)
[2021-03-10] VITALS: BP 140/74; PULSE 74; RESP 16; TEMP 36.1; O2SAT 98
[2021-03-10 02:53] LABS: Glucose, Whole Blood 201 mg/dL (60-115)
[2021-03-10] MEDS: Insulin Lispro 100 UNIT/ML 3 ML VIAL SUBCUT ×2 (03:29→07:43)
[2021-03-10] MEDS: Lactated Ringers 1,000 ML 125 ML IVCONT (03:30)
[2021-03-10] MEDS: ondansetron HCL 4 MG/2 ML VIAL IVPUSH (03:30)
[2021-03-10 04:00] VITALS: BP 123/68; PULSE 72; RESP 16; TEMP 36.4; O2SAT 98
[2021-03-10 05:53] LABS: MANUAL DIFF FLAG NO
[2021-03-10 06:06] LABS: Basophils Percent Auto 0.1 % (0-2); Hematocrit 32.1 % (37-47); Hemoglobin 10.3 g/dl (12.0-16.0); Imm Gran Abs Auto 0.03 X10*3/uL (0.00-0.03); Imm Gran Pct Auto 0.4 % (0.0-0.4); Lymphocytes Absolute Auto 0.9 X10*3/uL (1.2-4.9); Lymphocytes Percent Auto 13.2 % (20-40); Mean Corpuscular HGB Conc 32.1 g/dl (31.0-35.0); Mean Corpuscular Hemoglobin 27.1 pg (27.0-33.0); Mean Corpuscular Volume 84.5 fL (80-98); Mean Platelet Volume 9.8 fL (9.4-12.3); Monocytes Absolute Auto 0.2 X10*3/uL (0.1-1.2); Monocytes Percent Auto 2.9 % (2-11); Neutrophils Absolute Auto 5.7 X10*3/uL (2.0-8.3); Neutrophils Percent Auto 83.4 % (45-73); Platelet Count 229 X10*3/uL (160-400); White Blood Count 6.9 X10*3/uL (4.8-10.8)
[2021-03-10 06:49] LABS: Anion Gap 20 (12-20); Blood Urea Nitrogen 40 mg/dL (9-16); Calcium 8.8 mg/dL (8.4-10.2); Carbon Dioxide 19 mmol/L (22-29); Chloride 104 mmol/L (96-108); Creatinine Clr Calc Pharmacy 48.5; Estimated Glomerular Filt Rate 34; Glucose Random 200 mg/dL (60-115); Potassium 4.8 mmol/L (3.3-5.1); Sodium 138 mmol/L (135-145)
[2021-03-10 07:02] LABS: Glucose, Whole Blood 179 mg/dL (60-115)
[2021-03-10 07:58] VITALS: BP 134/69; PULSE 79; RESP 18; TEMP 36.6; O2SAT 97
--- NOTE | 2021-03-10 08:41 | HO.POSTANES ---
Post Anesthesia Evaluation Post Anesthesia Evaluation Vital Signs: Vital Signs Temp Pulse Resp BP Pulse Ox 03/10/21 07:58 97.9 F 79 18 134/69 97 03/10/21 04:00 97.6 F 72 16 123/68 98 03/10/21 00:00 96.9 F 74 16 140/74 H 98 Anesthesia: General Endotracheal-GETA Mental Status: Awake Pain Control: Satisfactory Nausea/Vomiting: None Hydration: Adequate Anesthesia-Related Issues: No Anes. Related Issues
[2021-03-10] MEDS: Famotidine/PF 20 MG/2 ML VIAL IVPUSH (09:33)
[2021-03-10 09:36] VITALS: BP 124/64; PULSE 79
[2021-03-10] MEDS: carvediloL 12.5 MG TABLET PO (09:36)
[2021-03-10] MEDS: Cyclobenzaprine HCl 10 MG TABLET PO (09:37)
--- NOTE | 2021-03-10 10:47 | HO.POSTANES ---
Post Anesthesia Evaluation Post Anesthesia Evaluation Vital Signs: Vital Signs Temp Pulse Resp BP Pulse Ox 03/10/21 09:36 79 124/64 03/10/21 07:58 97.9 F 79 18 134/69 97 03/10/21 04:00 97.6 F 72 16 123/68 98 03/10/21 00:00 96.9 F 74 16 140/74 H 98 Anesthesia: General Endotracheal-GETA Mental Status: Awake Pain Control: Satisfactory Nausea/Vomiting: None Hydration: Adequate Anesthesia-Related Issues: No Anes. Related Issues
--- NOTE | 2021-03-10 11:09 | MHC.CM.PN ---
EMR REVIEWED, PT ADMITTED S/P LAP SLEEVE GASTRECTOMY, GASTROPEXY AND HERIA REPAIR, CM MET W/PT WHO IS A&OX4, PT REPORTS SHE LIVES W/ AND SON, PT HAS NO DME HOWEVER HAS CANE/WALKER AVAILABLE AT HOME SHE MAY USE IF SHE FEELS DIZZY, PT REPORTS HER BP MEDS HAVE MADE HER DIZZY AND MOST OF THEM WERE D/C'D BY PROVIDER, PT ALSO REPORTS SHE HAS A DORMITORY MAID FOR 7HRS [facility]KLY THROUGH [employer] [facility], PCP VERIFIED AND PT REPORTS HER JOSEPH PADILLA IS HER HCP, COPY HAS BEEN REQUESTED. D/C PLAN: HOME W/RESUMP OF DORMITORY MAID & FOLLOW-UP W/SURGEON, FAMILY FOR TRANSPORT
== END 2021-03-10 11:04 | disposition home or self-care (01) | DRG 403 ==
LOC: HO.SSSA 03-09 06:28 → HO.S3 03-09 14:50
PROVIDERS: Physician Assistant; Admitting Provider Surgery; PCP Internal Medicine; Visit Provider Surgery
PROC: 0DB64Z3 Excision of Stomach, Percutaneous Endoscopic Approach, Vertical (ICD-10-PCS; CPT 43845; principal; 2021-03-09 14:10)
DX: E66.01 Morbid (severe) obesity due to excess calories (principal); K74.00 Hepatic fibrosis, unspecified; E11.9 Type 2 diabetes mellitus without complications; I10 Essential (primary) hypertension; E78.5 Hyperlipidemia, unspecified; K21.9 Gastro-esophageal reflux disease without esophagitis; F32.9 Major depressive disorder, single episode, unspecified; K76.0 Fatty (change of) liver, not elsewhere classified; G47.00 Insomnia, unspecified; K44.9 Diaphragmatic hernia without obstruction or gangrene; K66.0 Peritoneal adhesions (postprocedural) (postinfection); Z20.822 Contact with and (suspected) exposure to COVID-19; Z88.5 Allergy status to narcotic agent; Z68.37 Body mass index [BMI] 37.0-37.9, adult; Z79.4 Long term (current) use of insulin; Z88.6 Allergy status to analgesic agent; Z79.899 Other long term (current) drug therapy
CPT/HCPCS: 36415; 80048; 80053; 80061; 82947; 83036; 83525; 84439; 84443; 85014; 85018; 85025; 85610; 85730; 86140; 86850; 86900; 86901; 87635; 88307; 88342; 99024; A4649; J0131; J0690; J1100; J2250; J2370; J2405; J3010

== ENCOUNTER → 2021-03-17 07:23 | Outpatient (BNVA) | payer OTHER, SELFPAY | PROVIDERS: PCP Internal Medicine; Visit Provider Surgery | DX: E66.9 Obesity, unspecified (principal); Z68.34 Body mass index [BMI] 34.0-34.9, adult | CPT/HCPCS: 99212 ==

== ENCOUNTER → 2021-04-28 07:19 | Outpatient (BNVA) | payer OTHER, SELFPAY | PROVIDERS: PCP Internal Medicine; Visit Provider Surgery | DX: E66.9 Obesity, unspecified (principal); Z68.32 Body mass index [BMI] 32.0-32.9, adult | CPT/HCPCS: 99212 ==

== ENCOUNTER → 2021-05-26 08:13 | Outpatient (BNVA) | payer OTHER, SELFPAY | PROVIDERS: PCP Internal Medicine; Visit Provider Surgery | DX: E66.9 Obesity, unspecified (principal); Z68.31 Body mass index [BMI] 31.0-31.9, adult | CPT/HCPCS: 99212 ==

== ENCOUNTER → 2021-06-26 08:07 | Outpatient (BNVA) | payer OTHER, SELFPAY | PROVIDERS: PCP Internal Medicine; Visit Provider Surgery ==

== ENCOUNTER → 2021-07-06 08:03 | Outpatient (BNVA) | payer OTHER, SELFPAY | PROVIDERS: PCP Internal Medicine; Visit Provider Dietitian, Registered | DX: E66.9 Obesity, unspecified (principal) | CPT/HCPCS: 97803 ==

== ENCOUNTER → 2021-07-20 08:11 | Outpatient (BNVA) | payer OTHER, SELFPAY | PROVIDERS: PCP Internal Medicine; Referring Provider Surgery; Visit Provider Dietitian, Registered | DX: E66.9 Obesity, unspecified (principal) | CPT/HCPCS: 97803 ==

== ENCOUNTER → 2022-08-28 13:26 | Outpatient (BNVA) | payer OTHER, SELFPAY | PROVIDERS: PCP Internal Medicine; Visit Provider Surgery Vascular Surgery | DX: I83.11 Varicose veins of right lower extremity with inflammation (principal) | CPT/HCPCS: 99202 ==

== ENCOUNTER 2022-09-24 07:52 | Outpatient (REF) | payer OTHER, SELFPAY ==
--- NOTE | ~2022-09-24 | US_ITS ---
EXAMINATION: US LOWER EXTREMITY VENOUS (REFLUX EXAM), BILATERAL CLINICAL INDICATION: Chronic venous insufficiency with lower extremity varicose veins COMPARISON: None. TECHNIQUE: Color flow triplex imaging and compression Doppler was performed to evaluate both the deep and the superficial systems bilaterally. To evaluate the superficial system, the examination was performed in the upright position. Color-flow Doppler ultrasound and compression ultrasound were utilized. In addition, maneuvers were utilized to demonstrate reflux. FINDINGS: 1. DEEP VENOUS ULTRASOUND OF THE RIGHT LOWER EXTREMITY: Common Femoral Vein: Compressible, normal respiratory variation and augmented flow. Femoral Vein: Compressible, normal color flow and augmentation. Popliteal Vein: Compressible, normal augmentation. Deep Reflux: There is no evidence of reflux in the deep system in either the common femoral vein or the popliteal vein. There is no evidence of a Hicks's cyst. 2. SUPERFICIAL ULTRASOUND WITH DOPPLER OF RIGHT LOWER EXTREMITY: GREAT SAPHENOUS VEIN: Saphenofemoral Junction: 1.3 cm; Reflux: 0 ms Proximal Thigh: 0.6 cm; Reflux: 0 ms Mid Thigh: 0.5 cm; Reflux: 0 ms Above Knee: 0.5 cm; Reflux: 0 ms At Knee: 0.6 cm; Reflux: 0 ms Below Knee: 0.4 cm; Reflux: 0 ms Mid Calf: 0.4 cm; Reflux: 0 ms Ankle: 0.2 cm; Reflux: 0 ms DUPLICATED MEDIAL GREAT SAPHENOUS VEIN: Diameter: None Imaged Reflux: NA DUPLICATED LATERAL GREAT SAPHENOUS VEIN: Diameter: 0.6 cm Reflux: None SMALL SAPHENOUS VEIN: Proximal: 0.6 cm; Reflux: 0 ms Distal: 0.2 cm; Reflux: 0 ms VEIN OF GIACOMINI: None Imaged. PERFORATORS: Location: None significant Size: NA Reflux: NA VARICOSITIES: Location: Proximal thigh, knee and anterior distal calf Size: Ranging from 0.3 to 0.6 cm Reflux: Ranging from 0 ms to 1700 ms 3. DEEP VENOUS ULTRASOUND OF THE LEFT LOWER EXTREMITY: Common Femoral Vein: Compressible, normal respiratory variation and augmented flow. Femoral Vein: Compressible, normal color flow and augmentation. Popliteal Vein: Compressible, normal augmentation. Deep Reflux: There is no evidence of reflux in the deep system in either the common femoral vein or the popliteal vein. There is no evidence of a Hicks's cyst. 4. SUPERFICIAL ULTRASOUND WITH DOPPLER OF LEFT LOWER EXTREMITY: GREAT SAPHENOUS VEIN: Saphenofemoral Junction: 1.2 cm; Reflux: 0 ms Proximal Thigh: 0.5 cm; Reflux: 0 ms Mid Thigh: 0.5 cm; Reflux: 0 ms Above Knee: 0.4 cm; Reflux: 0 ms At Knee: 0.5 cm; Reflux: 0 ms Below Knee: 0.2 cm; Reflux: 0 ms Mid Calf: 0.2 cm; Reflux: 0 ms Ankle: 0.3 cm; Reflux: 0 ms DUPLICATED MEDIAL GREAT SAPHENOUS VEIN: Diameter: None Imaged Reflux: NA DUPLICATED LATERAL GREAT SAPHENOUS VEIN: Diameter: 0.6 cm Reflux: None SMALL SAPHENOUS VEIN: Proximal: 0.9 cm; Reflux: 0 ms Mid: 0.3 cm; Reflux: 1188 ms Distal: 0.2 cm; Reflux: 0 ms VEIN OF GIACOMINI: None Imaged. PERFORATORS: Location: None significant Size: NA Reflux: NA VARICOSITIES: Location: Proximal thigh, knee Size: 0.3 to 0.4 cm Reflux: None US/US venous duplex LE BI IMPRESSION: Right: No significant reflux of venous insufficiency in the great saphenous vein or small saphenous vein. Small scattered varicose veins as described above Left: Focal moderate reflux in the mid small saphenous vein. No significant reflux or insufficiency throughout the remaining saphenous veins of the left lower extremity. Small varicose veins as described above
== END 2022-09-24 07:53 | disposition home or self-care (01) ==
LOC: HO.US 07:52
PROVIDERS: PCP Internal Medicine; Visit Provider Surgery Vascular Surgery
DX: I83.893 Varicose veins of bilateral lower extremities with other complications (principal)
CPT/HCPCS: 93970

== ENCOUNTER → 2022-10-18 10:54 | Outpatient (BNVA) | payer OTHER, SELFPAY | PROVIDERS: PCP Internal Medicine; Visit Provider Surgery Vascular Surgery | DX: I83.11 Varicose veins of right lower extremity with inflammation (principal); I89.0 Lymphedema, not elsewhere classified | CPT/HCPCS: 99212 ==

== ENCOUNTER 2024-02-04 15:12 | Outpatient (REF) | payer OTHER, SELFPAY | END 2024-02-04 15:13 | disposition home or self-care (01) | LOC: HO.LAB 15:12 | PROVIDERS: Visit Provider Internal Medicine | DX: R80.9 Proteinuria, unspecified (principal); N18.32 Chronic kidney disease, stage 3b | CPT/HCPCS: 36415; 82610 ==

== ENCOUNTER 2024-02-19 09:42 | Outpatient (AMB) | payer OTHER, SELFPAY ==
--- NOTE | 2024-02-19 09:57 | A.OFFVIS_ITS ---
Vital Signs 02/19/24 10:13 Height 5 ft 5 in Weight 240 lb 11.916 oz BMI 40.1 BP 128/60 Blood Pressure Location Lt brachial Position Sitting Pulse 80 Pulse Source Pulse Oximeter Pulse Oximetry (%) 97 Oxygen Delivery Method Room Air Intake Visit Reasons: colo/diarrhea Intake Note: Gay presents in office today for an initial OV (colo scrn - diarrhea) CC; Pt reports onset of sx approximately 1 year ago. Pt reports that they have been experiencing intermittent constipation and diarrhea which typically doesn't have much in the way of provoking factors. Pt reports that often her sx will be very acute and have no warning. Pt also reports however; that she does notice some correlation with lactose, as she had some lactose a few days ago which was very quickly followed by moderate to severe diarrhea. Pt is also due for a recall colo s.p. Pt believes their last colo s/p was approximately 5 years ago. Preconstruction Manager Required: No Allergies lockett flavor Allergy (Intermediate, Verified 02/19/24 10:06) Hives morphine Allergy (Intermediate, Verified 02/19/24 10:06) bradycardia NSAIDS (Non-Steroidal Anti-Inflamma Allergy (Intermediate, Verified 02/19/24 10:06) tachycardia HPI HPI colo/diarrhea: Details: 58 year old? female with past medical history of lymphedema, varicose veins, obesity, congenital intra-abdominal adhesions,s/p laparoscopic sleeve gastrectomy, paraesophageal diaphragmatic hernia repair steatosis of the liver, hyperthyroidism, GERD, depression, hyperlipidemia, hypertension, insulin- dependent diabetes is here today for pre colonoscopy screening.? Patient was sent to us by her PCP.? Colonoscopy over 5 years ago at [facility]. Patient states that she had couple polyps.? Denies any personal or family history of gastrointestinal disease or CRC.? Patient admits to have postprandial loose s tools occasionally depending on what she eats. Her symptoms started about a year ago or so, however they have gotten worse in the past few months. Patient however noticed that when she drinks milk she will have diarrhea almost immediately. Patient denies melena, hematochezia, unintentional weight loss or ribbon like stools. Patient reports occasional acid reflux depending on what she eats. Denies history of difficulty with sedation or anesthesia in the past.? Negative for history of sleep apnea.? Denies any history of cardiac, pulmonary, or hepatic disease.?? No history of infectious? diseases like hepatitis A, B, C, HIV or tuberculosis.? Patient is not on any anticoagulation PFSH Medical History Steatosis, liver BMI 37.0-37.9, adult Anemia Arthritis History of tachycardia Chronic renal insufficiency History of neuropathy Asthma Preprocedural examination BMI 38.0-38.9,adult Obesity Constipation GERD (gastroesophageal reflux disease) Depression Hyperlipidemia Hypertension Insulin dependent diabetes mellitus Morbid obesity Insomnia Surgical History H/O bariatric surgery History of sleeve gastrectomy Hx of breast lump removal Hx of appendectomy Hx of tubal ligation Hx of left inguinal hernia repair Hx of thumb surgery History of carpal tunnel release H/O colonoscopy Social History Are you a primary wound care nurse to a significant other at home: No Do you presently have visiting nurse or other home services: Yes Patient Tobacco Use Status: Former Tobacco user Tobacco use type: Cigarette Advance Directives Date on File: 03/09/21 service: No Current occupational status: unemployed Review of Systems Const Denies weight gain and Denies weight loss ENT Reports no additional complaints, Denies dysphagia and Denies odynophagia Card Reports no additional complaints Resp Reports no additional complaints GI Reports abdominal pain (LLQ, ), Denies belching, Denies melena, Reports bloating, Denies change in bowel habits, Reports constipation, Denies dysphagia, Denies excessive flatus, Denies dyspepsia, Reports heartburn, Denies diarrhea, Reports loose stools, Denies nausea, Denies odynophagia and Denies vomiting Reports no additional complaints Musc Reports no additional complaints Neuro Reports no additional complaints Psych Reports no additional complaints Endo Reports no additional complaints Physical Exam Vital Signs: Last Vital Signs Pulse 80 02/19/24 10:13 BP 128/60 02/19/24 10:13 Pulse Ox 97 02/19/24 10:13 Oxygen Delivery Method Room Air 02/19/24 10:13 BMI result Body Mass Index 40.1 Const General: healthy appearing and no acute distress Nutritional Appearance: well nourished Orientation/consciousness: patient oriented x3 Resp Effort & Inspection: normal respiratory effort, able to speak in complete sentences, no tracheal deviation and symmetric chest movement Auscultation: clear to auscultation bilaterally Cardio Rate: regular rate GI Inspection: Yes normal to inspection and No distended Palpation (GI): Soft to palpation, not firm, nontender and No hepatosplenomegaly present Auscultation: normal bowel sounds General: Yes no CVA tenderness Back/Spine/Pelvis Back: no CVA tenderness Skin General skin exam: elasticity normal, turgor normal and dry skin Neuro General: patient oriented x3 Psych Appearance: grossly normal Mental Status: mental status grossly normal Assessment & Plan Assessment & Plan (1) Screen for colon cancer: Code(s): Z12.11 - Encounter for screening for malignant neoplasm of colon Plan Patient denies any cardiac or respiratory symptoms.? As mentioned above in HPI patient has been experiencing GI issues for the past year. Mainly she reports occasional postprandial diarrhea. She does admit to be constipated. Diarrhea is provoked mainly by food. Patient admits that when she drinks milk she will have diarrhea. Avoid dietary triggers. Discussed with patient low FODMAP diet. List of food recommended as well as list of food to avoid given to patient. Patient also encouraged to avoid other dietary triggers that provoke her reflux. Avoid late night snacking. Staying upright for minimum 3 hours after meals discussed with patient. Will send her for blood work. Will check lipase, liver panel, thyroid study, vitamin B12, folate and vitamin-D levels. Patient will start taking Citrucel in the morning to help bulk stools and Senokot to help her empty her bowels. She will return in 2 months to discuss colonoscopy and upper endoscopy. Message sent to surgical schedulers to book upper endoscopy and colonoscopy for patient. Patient is agreeable to current plan of care and verbalizes understanding of instructions. She was given the opportunity to ask questions and all questions answered. Thank you for allowing me to participate in her care Orders: Orders Lipase 02/19/24 R10.9 - Unspecified abdominal pain Liver Panel 02/19/24 R74.01 - Elevation of levels of liver transaminase levels TSH reflex Free T4 02/19/24 K59.00 - Constipation, unspecified Vitamin B12 and Folate 02/19/24 R19.7 - Diarrhea, unspecified Vitamin D 25-OH (D2 and D3) 02/19/24 E55.9 - Vitamin D deficiency, unspecified Medications: New methylcellulose (laxative) (Citrucel) take it with full glass of water 500 mg PO DAILY 90 tabs 2RF K59.00 - Constipation, unspecified sennosides (Natural Senna Laxative) 17.2 mg (2 x 8.6 mg) PO BEDTIME 60 tabs 3RF constipation K59.00 - Constipation, unspecified Coding Level of Care Code New Pt Level 4 (57392) Diagnoses Screen for colon cancer Z12.11 Time Spent (min) 45 Comment 30 minutes spent with patient and additional 15 minutes spent reviewing her records
[2024-02-19 10:13] VITALS: BP 128/60; PULSE 80; O2SAT 97; BMI 40.1
== END 2024-02-19 10:44 | disposition home or self-care (01) ==
PROVIDERS: PCP Internal Medicine; Visit Provider Nurse Practitioner Family
DX: Z12.11 Encounter for screening for malignant neoplasm of colon (principal); Z01.818 Encounter for other preprocedural examination
CPT/HCPCS: 99204

== ENCOUNTER 2024-02-19 09:42 | Outpatient (REF) | payer OTHER, SELFPAY ==
[2024-02-19 12:08] LABS: Alanine Aminotransferase 13 U/L (0-31); Albumin Level 3.8 g/dL (3.5-5.0); Alkaline Phosphatase 106 U/L (39-117); Aspartate Amino Transferase 16 U/L (5-31); Bilirubin Direct 0.1 mg/dL (0.0-0.5); Bilirubin Total 0.4 mg/dL (0.0-1.0); Lipase 27 U/L (8-78); Total Protein 6.9 g/dL (6.5-8.0)
[2024-02-19 12:22] LABS: TSH reflex Free T4 1.15 uIU/mL (0.32-4.0)
[2024-02-19 12:34] LABS: Folate 8.8 ng/mL (> or = 4.0); Vitamin B12 1212 pg/mL (200-900)
[2024-02-23 16:49] LABS: Vitamin D 25-OH, D2 <4 ng/mL; Vitamin D 25-OH, D3 22 ng/mL; Vitamin D 25-OH, Total 22 ng/mL (30-100)
== END 2024-02-19 09:43 | disposition home or self-care (01) ==
LOC: HO.LAB 09:42
PROVIDERS: PCP Internal Medicine; Visit Provider Nurse Practitioner Family
DX: R10.9 Unspecified abdominal pain (principal); R74.01 Elevation of levels of liver transaminase levels; K59.00 Constipation, unspecified; E55.9 Vitamin D deficiency, unspecified; R19.7 Diarrhea, unspecified; E66.9 Obesity, unspecified
CPT/HCPCS: 36415; 80076; 82306; 82607; 82746; 83690; 84443; 99202

== ENCOUNTER 2024-04-17 09:45 | Outpatient (AMB) | payer OTHER, SELFPAY ==
--- NOTE | 2024-04-17 09:55 | A.OFFVIS_ITS ---
Vital Signs 04/17/24 09:56 Height 5 ft 5 in Weight 242 lb 8.136 oz BMI 40.4 BP 140/70 H Blood Pressure Location Lt brachial Position Sitting Pulse 66 Pulse Source Pulse Oximeter Pulse Oximetry (%) 99 Oxygen Delivery Method Room Air Intake Visit Reasons: 2 month follow IBS, discuss colo and upper endo Intake Note: Gay presents in office today to discuss possible double s/p. CC; Pt was rx'd senna and citrucel at their last visit. Pt also had lab work drawn prior to this visit. Pt reports that they are still experiencing their chronic constipation. Pt reports that they are taking their medication every other day as they are able to tolerate this better. Pt was unable to tolerate the sx associated with taking their medication every day. Pt reports having upcoming cardiac cath. Staff Forester Required: No Accompanied by: Self / Same As Patient Allergies lockett flavor Allergy (Intermediate, Verified 04/17/24 09:56) Hives morphine Allergy (Intermediate, Verified 04/17/24 09:56) bradycardia NSAIDS (Non-Steroidal Anti-Inflamma Allergy (Intermediate, Verified 04/17/24 09:56) tachycardia HPI HPI 2 month follow IBS, discuss colo and upper endo: Details: LAST VISIT Screen for colon cancer Plan Patient denies any cardiac or respiratory symptoms.? As mentioned above in HPI patient has been experiencing GI issues for the past year. Mainly she reports occasional postprandial diarrhea. She does admit to be constipated. Diarrhea is provoked mainly by food. Patient admits that when she drinks milk she will have diarrhea. Avoid dietary triggers. Discussed with patient low FODMAP diet. List of food recommended as well as list of food to avoid given to patient. Patient also encouraged to avoid other dietary triggers that provoke her reflux. Avoid late night snacking. Staying upright for minimum 3 hours after meals discussed with patient. Will send her for blood work. Will check lipase, liver panel, thyroid study, vitamin B12, folate and vitamin-D levels. Patient will start taking Citrucel in the morning to help bulk stools and Senokot to help her empty her bowels. She will return in 2 months to discuss colonoscopy and upper endoscopy. Message sent to surgical schedulers to book upper endoscopy and colonoscopy for patient. Patient is agreeable to current plan of care and verbalizes understanding of instructions. She was given the opportunity to ask questions and all questions answered. ? Thank you for allowing me to participate in her care Orders Orders Lipase 02/19/24 R10.9 Liver Panel 02/19/24 R74.01 TSH reflex Free T4 02/19/24 K59.00 Vitamin B12 and Folate 02/19/24 R19.7 Vitamin D 25-OH (D2 and D3) 02/19/24 E55.9 Medications New methylcellulose (laxative) (Citrucel) take it with full glass of water 500 mg PO DAILY 90 tabs 2RF K59.00 sennosides (Natural Senna Laxative) 17.2 mg (2 x 8.6 mg) PO BEDTIME 60 tabs 3RF constipation K59.00 TODAY'S VISIT Patient is here today for follow-up. Patient has scheduled colonoscopy, however yesterday she received the phone call from her kiln door repairer stating that she has severe coronary artery disease that was found on 1 of the studies and she needs to be sent for cardiac catheterization. Cardiac catheterization was not scheduled yet. Patient is expecting phone call. History of cardiac catheterization and stent in the past several years ago. Patient denies any chest pain or shortness of breath at this time. Patient reports that she never received fiber supplement. Patient states that she was taking Senokot, however the cause diarrhea. Patient does not take it every day. Patient admits to occasional postprandial loose stools. Denies melena, hematochezia, unintentional weight loss or ribbon like stools. Discussed with patient her lab results. [facility] Medical History Steatosis, liver BMI 37.0-37.9, adult Anemia Arthritis History of tachycardia Chronic renal insufficiency History of neuropathy Asthma Preprocedural examination BMI 38.0-38.9,adult Obesity Constipation GERD (gastroesophageal reflux disease) Depression Hyperlipidemia Hypertension Insulin dependent diabetes mellitus Morbid obesity Insomnia Surgical History H/O bariatric surgery History of sleeve gastrectomy Hx of breast lump removal Hx of appendectomy Hx of tubal ligation Hx of left inguinal hernia repair Hx of thumb surgery History of carpal tunnel release H/O colonoscopy Social History Are you a primary care provider to a significant other at home: No Do you presently have visiting nurse or other home services: Yes Patient Tobacco Use Status: Former Tobacco user Tobacco use type: Cigarette Advance Directives Date on File: 03/09/21 service: No Current occupational status: unemployed Review of Systems Const Denies weight gain and Denies weight loss ENT Reports no additional complaints, Denies dysphagia and Denies odynophagia Card Reports no additional complaints Resp Reports no additional complaints GI Reports abdominal pain (LLQ, ), Denies belching, Denies melena, Reports b loating, Denies change in bowel habits, Reports constipation, Denies dysphagia, Denies excessive flatus, Denies dyspepsia, Reports heartburn, Denies diarrhea, Reports loose stools, Denies nausea, Denies odynophagia and Denies vomiting Reports no additional complaints Musc Reports no additional complaints Neuro Reports no additional complaints Psych Reports no additional complaints Endo Reports no additional complaints Physical Exam Vital Signs: Last Vital Signs Pulse 66 04/17/24 09:56 BP 140/70 H 04/17/24 09:56 Pulse Ox 99 04/17/24 09:56 Oxygen Delivery Method Room Air 04/17/24 09:56 BMI result Body Mass Index 40.4 Const General: healthy appearing and no acute distress Nutritional Appearance: obese Orientation/consciousness: patient oriented x3 Resp Effort & Inspection: normal respiratory effort, able to speak in complete sentences, no tracheal deviation and symmetric chest movement Auscultation: clear to auscultation bilaterally Cardio Rate: regular rate GI Inspection: Yes normal to inspection and No distended Palpation (GI): Soft to palpation, not firm, nontender and No hepatosplenomegaly present Auscultation: normal bowel sounds General: Yes no CVA tenderness Back/Spine/Pelvis Back: no CVA tenderness Skin General skin exam: elasticity normal, turgor normal and dry skin Neuro General: patient oriented x3 Psych Appearance: grossly normal Mental Status: mental status grossly normal Results Reviewed Results Reviewed: Laboratory Tests 02/19/24 11:05 Total Bilirubin 0.4 AST 16 ALT 13 Lipase 27 Vitamin B12 1212 H 25-OH Vitamin D Total 22 L Folate 8.8 TSH 1.15 Assessment & Plan Assessment & Plan (1) Screen for colon cancer: Code(s): Z12.11 - Encounter for screening for malignant neoplasm of colon (2) Constipation: Code(s): K59.00 - Constipation, unspecified Qualifiers: Constipation type: slow transit constipation Qualified Code(s): K59.01 - Slow transit constipation Plan Patient has colonoscopy scheduled for July 22 as well as upper endoscopy. Patient received a phone call from her kiln door repairer's office yesterday that she will have to go for cardiac catheterization. Calcification was found in 1 of the arteries and she might need a stent. History of cardiac catheterizations with stent in the past. If this will be the case patient will need to postpone the colonoscopy until cleared by Cardiology, most likely for minimum 8 months due to antiplatelet therapy. Patient's kiln door repairer is in [place] at [facility]. Will call to see if patient can be cleared if cardiac catheterization will not require stenting we should get clearance as well. Patient will keep the appointment with me that was scheduled for after the procedure. Patient is agreeable to this plan and verbalizes understanding of instructions. She was given the opportunity to ask questions and all questions answered. Thank you for allowing me to participate in her care Medications: Refilled methylcellulose (laxative) (Citrucel) take it with full glass of water 500 mg PO DAILY 90 tabs 2RF K59.00 - Constipation, unspecified Coding Level of Care Code Est Pt Level 3 (80228) Diagnoses Screen for colon cancer Z12.11 Slow transit constipation K59.01 Constipation type: slow transit constipation Time Spent (min) 30 Comment 20 minutes spent with patient and additional 10 minutes spent reviewing her records
[2024-04-17 09:56] VITALS: BP 140/70; PULSE 66; O2SAT 99; BMI 40.4
== END 2024-04-17 12:07 | disposition home or self-care (01) ==
PROVIDERS: PCP Internal Medicine; Visit Provider Nurse Practitioner Family
DX: Z12.11 Encounter for screening for malignant neoplasm of colon (principal); K59.01 Slow transit constipation; Z01.818 Encounter for other preprocedural examination
CPT/HCPCS: 99213

== ENCOUNTER → 2024-04-17 09:45 | Outpatient (BNVA) | payer OTHER, SELFPAY | PROVIDERS: PCP Internal Medicine; Visit Provider Nurse Practitioner Family | DX: Z01.818 Encounter for other preprocedural examination (principal); K59.01 Slow transit constipation | CPT/HCPCS: 99212 ==

== ENCOUNTER 2024-08-07 11:51 | Outpatient (AMB) | payer OTHER, SELFPAY ==
[2024-08-07 11:52] VITALS: BP 156/88; PULSE 80; O2SAT 100; BMI 36.2
--- NOTE | 2024-08-07 11:52 | A.OFFVIS_ITS ---
Vital Signs 08/07/24 11:52 Height 5 ft 5 in Weight 217 lb 13.067 oz BMI 36.2 BP 156/88 H Blood Pressure Location Rt brachial Position Sitting Pulse 80 Pulse Source Pulse Oximeter Pulse Oximetry (%) 100 Oxygen Delivery Method Room Air Intake Visit Reasons: r/s from 08/05 Intake Note: ESTABLISHED PATIENT Gay presents in office today for a scheduled 4 mos FUV. Meds reviewed? Y Allergies reviewed? Y No recent surgeries? Cardiac surgery through [facility] within 2 mos. Pt had complications post cardiac cath. Any significant concerns or new changes? Normal since last visit. Pharmacy verified? [facility] for same day. Mail order through [facility] for 90 day supplies. Engineering Professionals Required: No Allergies lockett flavor Allergy (Intermediate, Verified 08/07/24 12:00) Hives morphine Allergy (Intermediate, Verified 08/07/24 12:00) bradycardia NSAIDS (Non-Steroidal Anti-Inflamma Allergy (Intermediate, Verified 08/07/24 12:00) tachycardia HPI HPI r/s from 08/05: Details: LAST VISIT: Screen for colon cancer Constipation Plan Patient has colonoscopy scheduled for July 22 as well as upper endoscopy. Patient received a phone call from her revenue integrity analyst's office yesterday that she will have to go for cardiac catheterization. Calcification was found in 1 of the arteries and she might need a stent. History of cardiac catheterizations with stent in the past. If this will be the case patient will need to postpone the colonoscopy until cleared by Cardiology, most likely for minimum 8 months due to antiplatelet therapy. Patient's revenue integrity analyst is in [place] at [facility]. Will call to see if patient can be cleared if cardiac catheterization will not require stenting we should get clearance as well. Patient will keep the appointment with me that was scheduled for after the procedure. Patient is agreeable to this plan and verbalizes understanding of instructions. She was given the opportunity to ask questions and all questions answered. ? Thank you for allowing me to participate in her care Medications Refilled methylcellulose (laxative) (Citrucel) take it with full glass of water 500 mg PO DAILY 90 tabs 2RF K59.00 TODAY'S VISIT: Patient is here today for follow-up. Patient reports that she just had cardiac catheterization done end of May that not went well. Patient end up having perforation during the procedure and had AL. Patient was admitted for few days. Stent was placed in 1 of her coronary arteries. Patient does not know much about it as she was told that this is part of a research and she is not to know if she has a stent or not. We do assume that she does as she was placed on Plavix after and 1 of the providers during her admission at the hospital told her that she has a stent. She will be following up with her revenue integrity analyst in 6 months. Currently going for cardiac rehab and is doing well. Progressively patient is getting stronger and stronger, works full-time. Denies any shortness of breath or chest pain during activity. Patient denies any melena, hematochezia, unintentional weight loss or ribbon like stools. Patient lost 27 lb since last visit, however patient reports that most of the weight she lost after her hospitalization in the beginning of June [facility] Medical History Steatosis, liver BMI 37.0-37.9, adult Anemia Arthritis History of tachycardia Chronic renal insufficiency History of neuropathy Asthma Preprocedural examination BMI 38.0-38.9,adult Obesity Constipation GERD (gastroesophageal reflux disease) Depression Hyperlipidemia Hypertension Insulin dependent diabetes mellitus Morbid obesity Insomnia Surgical History H/O bariatric surgery History of sleeve gastrectomy Hx of breast lump removal Hx of appendectomy Hx of tubal ligation Hx of left inguinal hernia repair Hx of thumb surgery History of carpal tunnel release H/O colonoscopy Social History Are you a primary pet care assistant to a significant other at home: No Do you presently have visiting nurse or other home services: Yes Patient Tobacco Use Status: Former Tobacco user Tobacco use type: Cigarette Advance Directives Date on File: 03/09/21 service: No Current occupational status: unemployed Review of Systems Const Denies weight gain and Denies weight loss ENT Reports no additional complaints, Denies dysphagia and Denies odynophagia Card Reports no additional complaints Resp Reports no additional complaints GI Denies abdominal pain, Denies belching, Denies melena, Denies bloating, Denies change in bowel habits, Denies dysphagia, Denies excessive flatus, Denies dyspepsia, Denies heartburn, Denies diarrhea, Denies loose stools, Denies nausea, Denies odynophagia and Denies vomiting Musc Reports no additional complaints Neuro Reports no additional complaints Psych Reports no additional complaints Endo Reports no additional complaints Physical Exam Vital Signs: Last Vital Signs Pulse 80 08/07/24 11:52 BP 156/88 H 08/07/24 11:52 Pulse Ox 100 08/07/24 11:52 Oxygen Delivery Method Room Air 08/07/24 11:52 BMI result Body Mass Index 36.2 Const General: healthy appearing and no acute distress Nutritional Appearance: obese Orientation/consciousness: patient oriented x3 Resp Effort & Inspection: normal respiratory effort, able to speak in complete sentences, no tracheal deviation and symmetric chest movement Auscultation: clear to auscultation bilaterally Cardio Rate: regular rate GI Inspection: Yes normal to inspection and No distended Palpation (GI): Soft to palpation, not firm, nontender and No hepatosplenomegaly present Auscultation: normal bowel sounds General: Yes no CVA tenderness Back/Spine/Pelvis Back: no CVA tenderness Skin General skin exam: elasticity normal, turgor normal and dry skin Neuro General: patient oriented x3 Psych Appearance: grossly normal Mental Status: mental status grossly normal Assessment & Plan Assessment & Plan (1) Steatosis, liver: Code(s): K76.0 - Fatty (change of) liver, not elsewhere classified Category: Medical (2) GERD (gastroesophageal reflux disease): Code(s): K21.9 - Gastro-esophageal reflux disease without esophagitis Category: Medical Qualifiers: Esophagitis presence: esophagitis presence not specified Qualified Code(s): K21.9 - Gastro-esophageal reflux disease without esophagitis (3) Constipation: Code(s): K59.00 - Constipation, unspecified Qualifiers: Constipation type: slow transit constipation Qualified Code(s): K59.01 - Slow transit constipation Plan Patient just had stent placed end of May. She started on Plavix after. Patient is unsure of what kind of stent did she get. However patient states that she was under some sort of a study that she was not told that she even had stent placed. One of the providers during her admission at the hospital told her that she does have a stent. Please call her revenue integrity analyst office [facility] in [place] to see how long she should be on Plavix before we are able to interrupt. So far patient has been on it since the beginning of June. Patient is doing cardiac greasy up at this time and will have a follow-up with her revenue integrity analyst in 6 months. I believe we should wait at least until then to send her for colonoscopy. Currently patient does not have any GI concerning symptoms. Reports that she has been feeling better, lost some weight. Patient reports that she is doing more activities now that she is able to. Coding Level of Care Code Est Pt Level 4 (28613) Complex EM visit Add On G2211 Diagnoses Steatosis, liver K76.0 Gastroesophageal reflux disease, unspecified whether esophagitis present K21.9 Esophagitis presence: esophagitis presence not specified Slow transit constipation K59.01 Constipation type: slow transit constipation Time Spent (min) 35 Comment 20 minutes spent with patient and additional 15 minutes spent reviewing her records
== END 2024-08-07 13:16 | disposition home or self-care (01) ==
PROVIDERS: PCP Internal Medicine; Visit Provider Nurse Practitioner Family
DX: K76.0 Fatty (change of) liver, not elsewhere classified (principal); K21.9 Gastro-esophageal reflux disease without esophagitis; K59.01 Slow transit constipation
CPT/HCPCS: 99214; G2211

== ENCOUNTER → 2024-08-07 11:51 | Outpatient (BNVA) | payer OTHER, SELFPAY | PROVIDERS: PCP Internal Medicine; Visit Provider Nurse Practitioner Family | DX: K76.0 Fatty (change of) liver, not elsewhere classified (principal); K21.9 Gastro-esophageal reflux disease without esophagitis; K59.01 Slow transit constipation | CPT/HCPCS: 99212 ==

== ENCOUNTER 2024-12-30 09:55 | Outpatient (AMB) | payer OTHER, SELFPAY ==
--- NOTE | 2024-12-30 10:07 | A.OFFVIS_ITS ---
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/ CAD/ recent OK 2023 Allergies lockett flavor Allergy (Intermediate, Verified 08/07/24 12:00) Hives morphine Allergy (Intermediate, Verified 08/07/24 12:00) bradycardia NSAIDS (Non-Steroidal Anti-Inflamma Allergy (Intermediate, Verified 08/07/24 1 2:00) tachycardia Medication List - Last Reconciled 12/30/24 by Victor Hugo Hart MD amlodipine 5 mg PO DAILY aspirin 81 mg PO DAILY atorvastatin 80 mg PO DAILY bisacodyl (Dulcolax (bisacodyl)) 10 mg (2 x 5 mg) PO BEDTIME blood sugar diagnostic (FreeStyle Lite Strips) As directed clopidogrel 75 mg PO DAILY cyanocobalamin (vitamin B-12) 1,000 mcg PO DAILY dapagliflozin propanediol (Farxiga) 10 mg PO DAILY dulaglutide (Trulicity) 0.75 mg subcut QWEEK famotidine 20 mg PO BID fluoxetine 20 mg PO BID melatonin orally once per day; 10 mg metformin ER 500 mg PO DAILY methocarbamol 500 mg PO BEDTIME montelukast 10 mg PO BEDTIME nitroglycerin 0.4 mg sublingual Q5M PRN olmesartan 1 tab PO DAILY simethicone (Gas Relief (simethicone)) 250 mg PO DAILY PRN sitagliptin phosphate (Januvia) 50 mg PO DAILY HPI Comments Details: Gay was referred here for cardiovascular care given that her insurance no longer provides her to be seen by her [facility] providers. Patient has somewhat complicated past medical history. She says longstanding history of palpitations for many years and had a cardiac catheterization 2007 which which time she had nonobstructive disease. Subsequently last year she started having symptoms again underwent a coronary CTA which has suggestive of coronary disease and subsequently underwent a invasive cardiac catheterization. She denies at any point having any exertional chest pain but had always symptoms of palpitations as per her. Associated with that she does have lightheadedness. Subsequent cardiac catheterization showed lesion in the proximal RCA and she was enrolled in investigational study which was blinded for her. She underwent intervention on the right coronary artery which was complicated by dissection and was told that she had mild myocardial infarction. Subsequently she developed junctional bradycardia which was persistent for few days. There was discussion about putting a pacemaker in. However subsequently after few days of observation she was discharged home with event monitor. She did not clearly understand the reason for her to undergo intervention as well as the reason not to put a pacemaker in. She was quite frustrated by overall decision making and saw her [facility] provider in August. By the time she was feeling better already. She said she took about a month to get better after the bradycardia episode and heart rate remained low for about a month. Subsequently she has been doing well. She has not had any. Now over the last month heart rate. She said this mostly happens at rest with a heart rate suddenly takes off and then it pauses and she feels lightheaded some avoidance somewhat short of breath. The symptoms have been going on for many years. She is taking all her medications. Echocardiogram done post intervention had shown basal inferior wall motion abnormality but with normal LV systolic function, this was done at [facility]. She has been taking all her medication, currently on dual antiplatelet therapy, high-intensity statin therapy. She says LDL was well optimized when checked in September, I do not have a copy of the same. She was also aggressively monitoring and managing her diabetes with last goal hemoglobin A1c at 6.4%. She has no heart failure symptoms. She denies any syncopal episodes. She says she has been trying to exercise more and has lost some weight. [facility] Medical History (Updated 12/30/24 @ 14:04 by Victor Hugo Hart MD) CAD (coronary artery disease) Steatosis, liver BMI 37.0-37.9, adult Anemia Arthritis History of tachycardia Chronic renal insufficiency History of neuropathy Asthma Preprocedural examination BMI 38.0-38.9,adult Obesity Constipation GERD (gastroesophageal reflux disease) Depression Hyperlipidemia Hypertension Insulin dependent diabetes mellitus Morbid obesity Insomnia Surgical History (Updated 12/30/24 @ 14:04 by Victor Hugo Hart MD) History of percutaneous coronary intervention H/O bariatric surgery History of sleeve gastrectomy Hx of breast lump removal Hx of appendectomy Hx of tubal ligation Hx of left inguinal hernia repair Hx of thumb surgery History of carpal tunnel release H/O colonoscopy Family History Mother Diabetes Heart disease Social History Are you a primary acute care clinical nurse specialist to a significant other at home: No Do you presently have visiting nurse or other home services: Yes Alcohol intake: never Patient Tobacco Use Status: Former Tobacco user Tobacco use type: Cigarette Advance Directives Date on File: 03/09/21 service: No Current occupational status: unemployed Review of Systems Const Denies weakness ENT Denies dizziness Card Denies chest pain, Denies chest pain with activity, Denies syncope, Denies rapid heart rate, Denies pedal edema, Denies edema, Denies leg edema, Denies lightheadedness, Reports palpitations, Denies dyspnea, Denies dyspnea on exertion and Denies orthopnea Resp Denies cough, Denies dyspnea and Denies dyspnea on exertion GI Denies hematochezia and Denies change in stool character Musc Denies abnormal gait, Denies muscle cramps, Denies muscle weakness, Denies numbness, Denies radiating pain into limb and Denies tingling Neuro Denies abnormal gait, Denies dizziness, Denies syncope, Denies numbness, Denies tingling and Denies weakness Endo Reports palpitations Physical Exam Vital Signs: Last Vital Signs Pulse 86 12/30/24 10:09 BP 122/62 12/30/24 10:09 BMI result Body Mass Index 35.9 Const General: cooperative, comfortable, no acute distress, alert, awake and Phys ically active Nutritional Appearance: obese Orientation/consciousness: patient oriented x3 Limitations: no limitations HEENT Head: Yes normocephalic and Yes atraumatic Neck Neck: Yes trachea midline, Yes supple and Yes no JVD Resp Effort & Inspection: normal respiratory effort Auscultation: clear to auscultation bilaterally Cardio Jugular venous distension: no JVD Palpation: normal PMI Rate: regular rate Rhythm: regular rhythm Heart sounds: S1 normal heart sound present, S2 normal heart sound present, no click, no gallops, no murmurs and no rubs GI Auscultation: normal bowel sounds Skin General skin exam: no rashes or lesions noted Neuro General: patient oriented x3 and no focal motor deficits Extrem General: Yes no clubbing, cyanosis or edema Psych Appearance: grossly normal Affect: Anxious affect present Office Procedures EKG Details: EKG shows normal sinus rhythm with possible left atrial enlargement with low- voltage QRS with no acute ischemic changes with no Q-waves 37590-[id number], Complete Assessment & Plan Assessment & Plan (1) CAD (coronary artery disease): Code(s): I25.10 - Atherosclerotic heart disease of [place] coronary artery without angina pectoris Category: Medical Plan: Coronary artery disease with right coronary artery percutaneous intervention in May last year for documented coronary artery disease without any obvious anginal symptoms at that point time, currently part of a clinical study. Patien t currently on dual antiplatelet therapy with aspirin and Plavix which should continue till May of 2025 or unless directed by the investigation team. The percutaneous intervention was complicated by local dissection and type for myocardial infarction. Patient was subsequent echocardiogram showed basal inferior wall motion abnormality but normal LV ejection fraction. She is currently not having any ischemic symptoms. And no further workup is indicated from that perspective. Nature of coronary artery disease and pathophysiology was discussed. Lifelong aspirin therapy beyond 1 year therapy with dual antiplatelet therapy is recommended. High-intensity statin therapy with target goal LDL less than 60 mg/dL is recommended. Advised follow-up lipid panel. Continue aggressive diabetes management goal hemoglobin A1c less than 7%, currently well optimized. Encouraged to participate in regular physical activity and weight loss program. She understands and agrees. (2) Palpitations: Code(s): R00.2 - Palpitations Category: Medical Plan: Recently increasing symptoms of palpitation which she describes rapid heart rate followed by sudden stop and then dizziness and shortness of breath. These are most suggestive of SVT. She has never had any proper diagnose he has associated with these palpitations. Will suggest a 30 day event monitor to further assess for the same. For now I would avoid any rate lowering medication till we figure out the diagnose. Less likely this represents atrial fibrillation. Will follow up in the clinic in 6 months time, sooner p.r.n.. Thank you for allowing me to partake in her care Coding Level of Care Code New Pt Level 4 (56208) Complex EM visit Add On G2211 Diagnoses CAD (coronary artery disease) I25.10 Palpitations R00.2 CPT Codes EKG - CPT: 93174-[id number], Complete ([id number])
[2024-12-30 10:09] VITALS: BP 122/62; PULSE 86; BMI 35.9
--- OUTSIDE RECORDS SUMMARY | 2024-12-30 10:53 | XMS_ITS | Clinical Summary ---
Author Organization [address] [facility] Address [address] [place] [address] Phone Care Team Providers Care Call Center Operator Name Role Phone Beryl Marie MD Primary Care Provider Allergies Active Allergy Reactions Criticality Noted Date Comments Ibuprofen 04/30/2017 Morphine 04/30/2017 Pectin 04/30/2017 Medications diclofenac (Voltaren Arthritis Pain) 1 % topical gel Apply 4 g topically 2 (two) times a day. 240 g 1 01/18/20 25 Active Encounters Date Type Department Care Team Description 11/18/2024 9:45 AM EDT Consult Orthopedic Surgery - [place] [address] [facility] [address] [place] [phone] Surinder Nieves DPM Controlled type 2 diabetes with neuropathy (CMS/HCC V24, CMS/FORMERLY [facility] V28) (Primary Dx); Left foot pain; Arthritis of both feet; Dermatophytosis, nail from Last 3 Months Surgical History Surgery Date Site/Laterality Comments APPENDECTOMY PROCEDURE:APPENDECTOMY BREAST LUMPECTOMY PROCEDURE:BREAST LUMPECTOMY;COMMENT:left breast OTHER SURGICAL HISTORY PROCEDURE:carpal tunnel left hand TUBAL LIGATION PROCEDURE:TUBAL LIGATION HERNIA REPAIR PROCEDURE:HERNIA REPAIR;COMMENT:left linguinal hernia Medical History Medical History Date Comments Diabetes mellitus (CMS/HCC V24, CMS/FORMERLY [facility] V28) DX:Diabetes mellitus (HCC) Chronic kidney disease DX:Chroni c kidney disease Anemia DX:Anemia Hypertension DX:Hypertension High cholesterol DX:High cholest tod Arthritis DX:Arthritis Depression DX:Depression Breast cancer (CMS/HCC V24, CMS/FORMERLY [facility] V28) DX:Breast cancer (HCC) Social History Tobacco Use Types Packs/Day Years Used Date Smoking Tobacco: Never Smokeless Tobacco: Never Alcohol Use Standard Drinks/Week Comments No 0 (1 standard drink = 0.6 oz pur e alcohol) Comments Unknown Sex and Gender Information Value Date Recorded Sex Assigned at Not on file Legal Sex Female 4:25 PM EST Gender Identity Not on file Sexual Orientation Not on file Obstetrics History Last Filed Vital Signs Vital Sign Reading Time Taken Comments Blood Pressure 186/75 09/11/2023 9:36 AM EST Sitting Left arm Pulse 87 09/11/2023 9:36 AM EST Temperature - - Respiratory Rate - - Oxygen Saturation - - Inhaled Oxygen Concentration - - Weight 106 kg (233 lb) 11/18/2024 9:34 AM EDT Height 166 cm (5' 5.35 ) 11/18/2024 9:3 4 AM EDT Body Mass Index 38.35 11/18/2024 9:34 AM EDT Plan of Treatment Upcoming Encounters Date Type Department Care Team (Late st Contact Info) Description 01/21/2025 10:30 AM EDT Office Visit Orthopedic Surgery - [place] [id number] [phone] Surinder Nieves, DPAvni [address] [address] Health Maintenance Due Date Last Done Comments Breast Cancer Screening 1967 Diabetes: Annual GFR (Glomerular Filtration Rate) 1967 Diabetes: Annual Foot Exam 1977 Diabetes: Annual Retina Eye Exam 1977 DTaP,Tdap,and Td Vaccines (1 - Tdap) 1986 Hepatitis B Vaccines (1 of 3 - 19+ 3-dose series) 1986 Zoster Vaccines (1 of 2) 1986 Cervical Cancer Screening: P ap Smear 1988 Pneumococcal Vaccine: 50+ Years (2 of 2 - PCV) 06/16/2019 06/16/2018 Pneumococcal Vaccine: Pediatrics (0 to 5 Years) and At-Risk Patients (6 to 64 Years) (2 of 2 - PCV) 06/16/2019 06/16/2018 COVID-19 Vaccine (2 - Pfizer risk series) 07/10/2021 06/19/2021 Cholesterol Screening (Lipid Panel) 08/09/2022 Colorectal Cancer Screening: Colonoscopy 08/09/2022 Depression Screening 08/09/2022 HIV Screening 08/09/2022 Hepatitis C Screening 08/09/2022 Social Influencers of Health Screening 08/09/2022 Diabetes: Annual Urine Albumin-Creatinine Ratio (uACR) 11/18/2024 Diabetes: Blood Sugar Contro l Test (HGBA1C) 11/18/2024 11/29/2023 Hypertension/CHF/CAD Annual BMP Blood Test 11/18/2024 Influenza Vaccine Completed 05/28/2024, 06/19/2021, 06/16/2018 HIB Vaccines Aged Out No longer eligi ble based on patient's age to complete this topic HPV Vaccines Aged Out No longer eligi ble based on patient's age to complete this topic Hepatitis A Vaccines Aged Out No long er eligible based on patient's age to complete this topic IPV Vaccines Aged Out No longer eligi ble based on patient's age to complete this topic MMR Vaccines Aged Out No longer eligi ble based on patient's age to complete this topic Meningococcal ACWY Vaccine Aged Out N o longer eligible based on patient's age to complete this topic Meningococcal B Vaccine Aged Out No l onger eligible based on patient's age to complete this topic RSV Immunization Patients Under 20 months Aged Out No longer eligible b ased on patient's age to complete this topic Varicella Vaccines Aged Out No longer eligible based on patient's age to complete this topic Procedures Procedure Name Priority Date/Time Associated Diagnosis Comments XR FOOT 3+ VIEWS BILAT Routine 11/18/2024 10:20 AM EDT Left foot pain from Last 3 Months Results * XR Foot 3+ Views bilat (11/18/2024 10:20 AM EDT) Anatomical Region Laterality Modality Lower Extremities, Foot Bilateral Computed Radiography Narrative 11/28/2024 10:45 AM EDT Bilateral foot weightbearing 3 views: Notable metatarsus adductus. ??No fractures or dislocation. ??Extensive arthritic changes in the tarsometatarsal joint. ??Enlarged osteophytic growth over the dorsal aspect of the midtarsal joints secondary to posterior compartment contracture. Surinder Nieves DPM IMG XR PROCEDURES Final Res ult from Last 3 Months Insurance * Guarantor: Gay May Account Type Relation to Patient Date of Phone Billing Address Personal/Family Self 1965 [address] [facility] [place] [address] [facility] Care Teams Call Center Operator Relationship Specialty Start Date End Date Beryl Marie MD [address] [place] [address] [address] [place] [address] PCP - General 09/12/22
--- OUTSIDE RECORDS SUMMARY | 2024-12-30 10:53 | XMS_ITS | Clinical Summary ---
Author Organization [facility] Address [address] [place] [address] Care Team Providers Care Street Light Servicer Name Role Phone Beryl Marie MD Primary Care Provider [phone] Allergies Active Allergy Reactions Criticality Noted Date Comments Saldivar Flavoring Agent (Non-Screening) 04/30/2017 Ibuprofen 04/30/2017 Morphine 04/30/2017 Medications Medication Sig Dispensed Refills Start Date End Date Status olmesartan-hydrochloro thiazide (BENICAR HCT) 40-12.5 MG per tablet Take 1 tablet by mouth daily. 0 Active montelukast (SINGULAIR) 10 MG tablet Take 1 tablet (10 mg total) by mouth every night at bedtime. 0 Active atorvastatin (LIPITOR) tablet 40 mg Take 1 tablet (40 mg total) by mouth daily. 0 Active Melatonin 5 MG CAPS Take 10 mg by mouth. 0 Active FLUoxetine (PROzac) 20 MG capsule Take 30 mg by mouth daily. 0 Active SITagliptin-metFORMIN (Janumet) 50-1000 MG per tablet Take 1 tablet by mouth daily. 0 Active carvedilol (COREG) 12.5 MG tablet Take 1 tablet (12.5 mg total) by mouth 2 (two) times a day with meals. 0 Active Dulaglutide (TRULICITY SC) Inject under the skin once a week. 0 Active metFORMIN (GLUCOPHAGE) tablet 500 mg Take 1 tablet (500 mg total) by mouth 2 (two) times a day with meals. 0 Active vitamin B-12 (CYANOCOBALAMIN) 100 MCG tablet Take 0.5 tablets (50 mcg total) by mouth daily. 0 Active amLODIPine (NORVASC) tablet 5 mg Take 1 tablet (5 mg total) by mouth daily. 0 Active Active Problems Problem Noted Date Diagnosed Date Neoplasm of left breast, [facility] tumor staging category Tis: lobular carcinoma in situ (LCIS) 04/30/2017 Social History Tobacco Use Types Packs/Day Years Used Date Smoking Tobacco: Never Smokeless Tobacco: Never Alcohol Use Standard Drinks/Week Comments No 0 (1 standard drink = 0.6 oz pur e alcohol) Sex and Gender Information Value Date Recorded Sex Assigned at Not on file Gender Identity Not on file Sexual Orientation Not on file Job Start Date Occupation Industry Not on file Not on file Not on file Last Filed Vital Signs Vital Sign Reading Time Taken Comments Blood Pressure 186/75 09/11/2023 9:36 AM EST Pulse 87 09/11/2023 9:36 AM EST Temperature 36.8 ??C (98.2 ??F) 09/11/2023 9:36 AM ES T Respiratory Rate - - Oxygen Saturation 99% 09/11/2023 9:36 AM EST Inhaled Oxygen Concentration - - Weight 105.7 kg (233 lb) 09/11/2023 9:36 AM EST Height 166.6 cm (5' 5.6 ) 03/13/2023 9:33 AM EDT Body Mass Index 38.07 03/13/2023 9:33 AM EDT Plan of Treatment Health Maintenance Due Date Last Done Comments Hepatitis B Vaccines (1 of 3 - 3-dose series) 1967 Hepatitis C Screening 1967 COVID-19 Vaccine (#1) 1972 Pneumococcal Vaccine (1 of 2 - PCV) 1973 Depression Screening 1979 Preventative Health Evaluation 1985 DTap / Tdap / Td (1 - Tdap) 1986 Shingrix-Zoster Vaccine (1 of 2) 1986 Cervical Cancer Screening (P ap Smear) 1988 Colon Cancer Screening (Colonoscopy) 2012 Breast Cancer Screening (Mammogram) 2017 Influenza Vaccine (#1) 2024 RSV Ped < 20 months Aged Out No longe r eligible based on patient's age to complete this topic Care Teams Street Light Servicer Relationship Specialty Start Date End Date Beryl Marie MD [address] [facility] [address] [place] [phone] PCP - General Internal Medicine 09/12/22
--- OUTSIDE RECORDS SUMMARY | 2024-12-30 10:53 | XMS_ITS | Clinical Summary ---
Author Organization [facility] Address [address] [address] Phone Care Team Providers Care Baggage Agent Supervisor Name Role Phone Beryl Marie MD Primary Care Provider [phone] Allergies Active Allergy Reactions Criticality Noted Date Comments Saldivar Hives 11/27/2023 Saldivar Flavoring Agent (Non-Screening) 04/30/2017 Ibuprofen 04/30/2017 Morphine 04/30/2017 Other Reaction(s): intolerant...gets sn owed Nsaids Other (see comments) 11/27/2023 Medications SITagliptin (JANUVIA) 50 MG tablet Take 25 mg by mouth 3 Active olmesartan (BENICAR) 40 MG tablet Take 40 mg by mouth 9 Active montelukast (SINGULAIR) 10 MG tablet Take 10 mg by mouth 9 Active metFORMIN (GLUCOPHAGE) 500 MG tablet Take 500 mg by mouth in the morning and 500 mg in the evening. Take with meals. 3 Active Melatonin 10 MG chewable tablet Chew 10 mg Act meng cyanocobalamin (VITAMIN B-12) 100 MCG tablet Take 50 mcg by mouth Active atorvastatin (LIPITOR) 40 MG tablet Take 80 mg by mouth 9 Active nitroglycerin (NITROSTAT) 0.4 MG SL tablet PLEASE SEE ATTACHED FOR DETAILED DIRECTIONS 4 Active methocarbamol (ROBAXIN) 500 MG tablet 4 Active Dapagliflozin Propanediol 10 MG tablet Take 10 mg by mouth 1 (one) time each day in the morning 30 tablet 11 4 Active carvedilol (COREG) 25 MG tablet Take 1 tablet (25 mg total) by mouth in the morning and 1 tablet (25 mg total) in the evening. Take with meals. 180 tablet 3 4 03/09/20 25 Active Additional Information Patient not taking.Reported on 08/17/2024 sennosides-docus ate sodium (SENOKOT-S) 8.6-50 MG tablet Take 1 tablet by mouth 1 (one) time each day Active Blood Pressure Monitoring (Adult Blood Pressure Cuff Lg) kitIndications:S tage 3b chronic kidney disease (HCC),Hypertensi on 1 each 1 (one) time each day 1 kit 4 Active clopidogrel (PLAVIX) 75 MG tablet Take 75 mg by mouth 1 (one) time each day Active famotidine (PEPCID) 20 MG tablet Take 20 mg by mouth in the morning and 20 mg in the evening. 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 Asthma 11/27/2023 Arthritis 11/27/2023 Angina of effort 11/27/2023 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 11/27/2023 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 017 Family History Medical History Relation Comments Diabetes Mother Heart disease Mother Kidney disease Mother Relation Status Comments Mother Social History Tobacco Use Types Packs/Day Years Used Date Smoking Tobacco: Former Cigarettes Tobacco Cessation:Counseling Given: Not Answered Alcohol Use Standard Drinks/Week Comments Not Currently 0 (1 standard drink = 0.6 oz pur e alcohol) Comments Unknown Sex and Gender Information Value Date Recorded Sex Assigned at Not on file Legal Sex Female 2:08 PM EST Gender Identity Not on file Sexual Orientation Not on file Last Filed Vital Signs Vital Sign Reading Time Taken Comments Blood Pressure 130/66 08/17/2024 12:57 PM EST Pulse 66 08/17/2024 12:57 PM EST Temperature - - Respiratory Rate - - Oxygen Saturation 98% 08/17/2024 12:57 PM EST Inhaled Oxygen Concentration - - Weight 98.2 kg (216 lb 9.6 oz) 08/17/2024 12:57 PM EST Height - - Body Mass Index - - Plan of Treatment Upcoming Encounters Date Type Department Care Team (Late st Contact Info) Description 02/15/2025 10:30 AM EDT Office Visit [facility] [address] [phone] Andrzej Valadez MD [address] [address] Health Maintenance Due Date Last Done Comments Breast Cancer Screening 1967 Hepatitis B Vaccine (1 of 3 - 19+ 3-dose series) 04/17 Pneumococcal Vaccine: 50+ Years (1 of 2 - PCV) 986 Colorectal Cancer Screening: Annual FOBT 2016 Colorectal Cancer Screening: Colonoscopy 2016 Colorectal Cancer Screening: Sigmoidoscopy 2016 Diabetes: Ophthalmology Exam 10/16/2023 Diabetes: Pedal Pulse Checked 10/16/2023 Diabetes: Sensory Foot Exam 10/16/2023 Diabetes: Visual Foot Exam 10/16/2023 Diabetes: Hemoglobin A1C 02/29/2024 11/29/2023 Influenza Vaccine Completed 05/28/2024 Procedures Procedure Name Priority Date/Time Associated Diagnosis Comments HEMOGLOBIN A1C Routine 11/29/2023 12:30 PM EDT from Last 3 Months or Most Recently Relevant to Health Maintenance Results * (ABNORMAL) Hemoglobin A1c (11/29/2023 12:30 PM EDT) Hemoglobin A1C 8.0(H) 4.8 - 5.6 % [facility] Comment: ? Prediabetes: 5.7 - 6.4 ? Diabetes: >6.4 ? Glycemic control for adults with diabetes: <7.0 11/29/2023 12:3 0 PM EDT 11/29/2023 Narrative [facility] - 12/05/2023 3:06 PM EDT Performed at: ??01 - [facility] [address] ??[id number] Cake Puncher: Isabel Lancaster MD, Phone: ??[phone] Andrzej Valadez MD LAB BLOOD ORDERABLES Final Result [facility] from Last 3 Months or Most Recently Relevant to Health Maintenance Insurance Medicaid [place] Care Teams Baggage Agent Supervisor Relationship Specialty Start Date End Date Beryl Marie MD [address] [place] [address] 1 [place] [address] PCP - General Internal Medicine 10/14/23
== END 2024-12-30 10:40 | disposition home or self-care (01) ==
PROVIDERS: PCP Internal Medicine; Visit Provider Internal Medicine Cardiovascular Disease
DX: I25.10 Atherosclerotic heart disease of native coronary artery without angina pectoris (principal); R00.2 Palpitations
CPT/HCPCS: 93010; 99204; G2211

== ENCOUNTER → 2024-12-30 09:55 | Outpatient (BNVA) | payer OTHER, SELFPAY | PROVIDERS: PCP Internal Medicine; Visit Provider Internal Medicine Cardiovascular Disease | DX: I25.10 Atherosclerotic heart disease of native coronary artery without angina pectoris (principal); R00.2 Palpitations | CPT/HCPCS: 93005; 99202 ==

== ENCOUNTER 2025-02-08 10:10 | Outpatient (REF) | payer OTHER, SELFPAY ==
--- OUTSIDE RECORDS SUMMARY | 2025-02-08 11:18 | XMS_ITS | Clinical Summary ---
Author Organization [facility] Address [address] [address] Phone Care Team Providers Care Press Setter Name Role Phone Beryl Marie MD Primary [...] Team (Late st Contact Info) Description 02/15/2025 Orders Only [facility] [address] [phone] Andrzej Valadez MD [address] [place] [phone] Stage 3b chronic kidney disease (HCC) 02/15/2025 10:30 AM EDT Office Visit [facility] [place] [id number] [phone] Andrzej Valadez MD [facility] [address] [address] Health Maintenance Due Date Last Done Comments [...] PM EDT Performed at: ??01 - [facility] [address] ??[id number] Household Appliance Assembler: Isabel Lancaster MD, Phone: ??[phone] us Andrzej Valadez MD LAB BLOOD ORDERABLES Final Result [facility] from Last 3 Months or Most Recently Relevant to Health Maintenance Care Teams Press Setter Relationship Specialty Start Date End Date Beryl Marie MD [address] [phone] PCP - General Internal Medicine 10/14/23
[2025-02-08 14:11] LABS: Appearance Urine Clear; Color Urine Yellow; Glucose Urine UA Negative (Negative); Leukocyte Esterase Urine Negative (Negative); Nitrite Urine Positive (Negative); PH 5.5 (5.0-9.0); Specific Gravity - Urine 1.015 (1.005-1.025); UMIC TRIGGER UA YES; Urine Blood Trace (Negative); Urine Ketones Negative (Negative); Urine Protein 100 (2+) mg/dL (Neg-Trace)
[2025-02-08 14:12] LABS: MANUAL DIFF FLAG NO
[2025-02-08 14:14] LABS: Bacteria Urine 4+ (None Seen); Hyaline Casts Urine 0-2 /LPF (0-2); RBC Urine 0-2 /HPF (0-2); Squamous Epithelial Cell Urine 0-2 /HPF (0-2); WBC Urine 0-5 /HPF (0-5)
[2025-02-08 14:29] LABS: Basophils Percent Auto 0.4 % (0-2); Eosinophils Absolute Auto 0.1 X10*3/uL (0.0-0.4); Eosinophils Percent Auto 2.8 % (0-4); Hematocrit 32.8 % (37.0-47.0); Hemoglobin 10.4 g/dl (12.0-16.0); Imm Gran Abs Auto 0.01 X10*3/uL (0.00-0.03); Imm Gran Pct Auto 0.2 % (0.0-0.4); Lymphocytes Absolute Auto 1.4 X10*3/uL (1.2-4.9); Lymphocytes Percent Auto 28.7 % (20-40); Mean Corpuscular HGB Conc 31.7 g/dl (31.0-35.0); Mean Corpuscular Hemoglobin 27.7 pg (27.0-33.0); Mean Corpuscular Volume 87.2 fL (80.0-98.0); Monocytes Absolute Auto 0.4 X10*3/uL (0.1-1.2); Monocytes Percent Auto 8.4 % (2-11); Neutrophils Percent Auto 59.5 % (45-73); Platelet Count 214 X10*3/uL (160-400); Red Blood Count 3.76 X10*6/uL (4.20-5.50); Red Cell Distribution Width 14.7 % (11.0-16.0)
[2025-02-08 14:43] LABS: Estimated Average Glucose 123 mg/dL; Hemoglobin A1c % 5.9 % (<6.0)
[2025-02-08 14:49] LABS: Anion Gap 11 (12-20); Blood Urea Nitrogen 43 mg/dL (9-16); Calcium 9.1 mg/dL (8.4-10.2); Carbon Dioxide 24 mmol/L (22-29); Chloride 110 mmol/L (96-108); Estimated Glomerular Filt Rate 41; Glucose Random 86 mg/dL (60-115); Iron 56 mcg/dL (30-160); Magnesium 1.9 mg/dL (1.6-2.6); Percent Iron Saturation 25 % (15-50); Phosphorus 3.8 mg/dL (2.7-4.5); Potassium 3.9 mmol/L (3.3-5.1); Sodium 141 mmol/L (135-145); Total Iron Binding Capacity 221 mcg/dL (228-428); Unsaturated Iron Binding 165 ug/dL; Uric Acid 5.7 mg/dL (2.4-5.7)
[2025-02-08 15:06] LABS: Ferritin 152 ng/mL (10-250); Vitamin D 25-OH Total 31.8 ng/mL (>30)
[2025-02-08 15:12] LABS: Creatinine Urine 40.76 mg/dL; Protein/Creatinine Ratio, Ur 1.86 (<0.2); Total Protein Urine Random 76 mg/dL (<12)
[2025-02-08 15:24] LABS: Microalbum/Creatinine Ratio Ur 1187.4 ug/mg cr (<30)
== END 2025-02-08 10:11 | disposition home or self-care (01) ==
LOC: HO.WFDLDS 10:10
PROVIDERS: Visit Provider Internal Medicine
DX: N18.32 Chronic kidney disease, stage 3b (principal)
CPT/HCPCS: 36415; 80048; 81001; 82043; 82306; 82570; 82610; 82728; 83036; 83540; 83735; 83970; 84100; 84156; 84550; 85025

== ENCOUNTER 2025-03-23 10:43 | Outpatient (AMB) | payer OTHER, SELFPAY ==
[2025-03-23 11:07] VITALS: BP 120/66; PULSE 80; O2SAT 98; BMI 37.6
--- NOTE | 2025-03-23 11:07 | MHC.OFFVIS ---
Vital Signs 03/23/25 11:07 Height 5 ft 5 in Weight 226 lb BMI 37.6 BP 120/66 Blood Pressure Location Rt brachial Position Sitting Pulse 80 Pulse Source Pulse Oximeter Pulse Oximetry (%) 98 Oxygen Delivery Method Room Air Intake Visit Reasons: 6 mo f/u discuss colonoscopy Intake Note: Est pt for mgmt of [facility]. Rediscuss colo. CC: C.O. bloating, distention, abd cramping and pressure. No additional changes. However, pt reports recent new diabetes medication (farxiga DC'd, jardiance started). Earth Burner Required: No Accompanied by: Self / Same As Patient Allergies lockett flavor Allergy (Intermediate, Verified 03/23/25 11:07) Hives morphine Allergy (Intermediate, Verified 03/23/25 11:07) bradycardia NSAIDS (Non-Steroidal Anti-Inflamma Allergy (Intermediate, Verified 03/23/25 11:07) tachycardia HPI HPI 6 mo f/u discuss colonoscopy: Details: LAST VISIT: Steatosis, liver GERD (gastroesophageal reflux disease) Constipation Plan Patient just had stent placed end of May. She started on Plavix after. Patient is unsure of what kind of stent did she get. However patient states that she was under some sort of a study that she was not told that she even had stent placed. One of the providers during her admission at the hospital told her that she does have a stent. Please call her combat systems engineer office [facility] in [place] to see how long she should be on Plavix before we are able to interrupt. So far patient has been on it since the beginning of June. Patient is doing cardiac greasy up at this time and will have a follow-up with her combat systems engineer in 6 months. I believe we should wait at least until then to send her for colonoscopy. Currently patient does not have any GI concerning symptoms. Reports that she has been feeling better, lost some weight. Patient reports that she is doing more activities now that she is able to. TODAY'S VISIT Patient is here today for follow-up. Patient reports that she has been doing better. Patient had changed combat systems engineer as her insurance changed. She is currently being going into our Cardiology group. Had appointment in December and has another appointment in June. Patient reports postprandial abdominal bloating depending on what she eats. Occasional constipation alternating with diarrhea. Patient does admit to over eating sometimes. 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 Patient denies dyspepsia, dysphagia or odynophagia. Denies melena, hematochezia, unintentional weight loss or ribbon like stools. Patient is taking omeprazole daily and for the most part her symptoms are suppressed PFS Medical History CAD (coronary artery disease) Steatosis, liver BMI 37.0-37.9, adult Anemia Arthritis History of tachycardia Chronic renal insufficiency History of neuropathy Asthma Preprocedural examination BMI 38.0-38.9,adult Obesity Constipation GERD (gastroesophageal reflux disease) Depression Hyperlipidemia Hypertension Insulin dependent diabetes mellitus Morbid obesity Insomnia Surgical History History of percutaneous coronary intervention H/O bariatric surgery History of sleeve gastrectomy Hx of breast lump removal Hx of appendectomy Hx of tubal ligation Hx of left inguinal hernia repair Hx of thumb surgery History of carpal tunnel release H/O colonoscopy Family History Mother Diabetes Heart disease Social History Are you a primary child care development specialist to a significant other at home: No Do you presently have visiting nurse or other home services: Yes Alcohol intake: never Patient Tobacco Use Status: Former Tobacco user Tobacco use type: Cigarette Advance Directives Date on File: 03/09/21 service: No Current occupational status: unemployed Review of Systems Const Denies weight gain and Denies weight loss ENT Reports no additional complaints, Denies dysphagia and Denies odynophagia Card Reports no additional complaints Resp Reports no additional complaints GI Denies abdominal pain, Denies belching, Denies melena, Denies bloating, Denies change in bowel habits, Denies dysphagia, Denies excessive flatus, Denies dyspepsia, Denies heartburn, Denies diarrhea, Denies loose stools, Denies nausea, Denies odynophagia and Denies vomiting Musc Reports no additional complaints Neuro Reports no additional complaints Psych Reports no additional complaints Endo Reports no additional complaints Physical Exam Vital Signs: Last Vital Signs Pulse 80 03/23/25 11:07 BP 120/66 03/23/25 11:07 Pulse Ox 98 03/23/25 11:07 Oxygen Delivery Method Room Air 03/23/25 11:07 BMI result Body Mass Index 37.6 Const General: healthy appearing and no acute distress Nutritional Appearance: obese Orientation/consciousness: patient oriented x3 Resp Effort & Inspection: normal respiratory effort, able to speak in complete sentences, no tracheal deviation and symmetric chest movement Auscultation: clear to auscultation bilaterally Cardio Rate: regular rate GI Inspection: Yes normal to inspection and No distended Palpation (GI): Soft to palpation, not firm, nontender and No hepatosplenomegaly present Auscultation: normal bowel sounds General: Yes no CVA tenderness Back/Spine/Pelvis Back: no CVA tenderness Skin General skin exam: elasticity normal, turgor normal and dry skin Neuro General: patient oriented x3 Psych Appearance: grossly normal Mental Status: mental status grossly normal Assessment & Plan Assessment & Plan (1) GERD (gastroesophageal reflux disease): Code(s): K21.9 - Gastro-esophageal reflux disease without esophagitis Category: Medical Qualifiers: Esophagitis presence: esophagitis presence not specified Qualified Code(s): K21.9 - Gastro-esophageal reflux disease without esophagitis (2) Status post repair of paraesophageal diaphragmatic hernia: Code(s): Z98.890 - Other specified postprocedural states; Z87.19 - Personal history of other diseases of the digestive system Category: Surgical (3) Liver fibrosis: Code(s): K74.00 - Hepatic fibrosis, unspecified Category: Medical (4) Steatosis, liver: Code(s): K76.0 - Fatty (change of) liver, not elsewhere classified Category: Medical (5) Congenital intra-abdominal adhesions: Code(s): Q43.3 - Congenital malformations of intestinal fixation Category: Medical Plan Continue omeprazole daily. Avoid dietary triggers and 8 and snacking. Staying upright for minimum 3 hours after meals discussed with patient patient was encouraged to eat smaller meals and more often. Increase fluid intake and activity to promote better bowel motility. Patient has appointment with combat systems engineer in June, message sent to mortgage loan officer originator to add clearance to that appointment. Patient will return in the office in July. She will call us if she will have any GI concerning symptoms. Patient is agreeable to current plan of care and verbalizes understanding of instructions. She was given the opportunity to ask questions and all questions answered Thank you for allowing me to participate in her care Coding Level of Care Code Est Pt Level 3 (03250) Diagnoses Gastroesophageal reflux disease, unspecified whether esophagitis present K21.9 Esophagitis presence: esophagitis presence not specified Status post repair of paraesophageal diaphragmatic hernia Z98.890; Z87.19 Liver fibrosis K74.00 Steatosis, liver K76.0 Congenital intra-abdominal adhesions Q43.3 Time Spent (min) 30 Comment 20 minutes spent with patient and additional 10 minutes spent reviewing her records
--- OUTSIDE RECORDS SUMMARY | 2025-03-23 11:55 | XMS_ITS | Clinical Summary ---
Author Organization [employer] [facility] Address [address] [place] [address] Care Team Providers Care Vest Baster Name Role Phone Beryl Marie MD Primary [...] Date Diagnosed Date Neoplasm of left breast, [facility] tumor staging category Tis: lobular carcinoma in [...] 87 09/11/2023 9:36 AM EST Temperature 36.8 C (98.2 F) 09/11/2023 9:36 AM EST Respiratory Rate - - Oxygen Saturation 99% [...] Cancer Screening (Mammogram) 2017 Influenza Vaccine (#1) 2025 RSV Ped < 20 months Aged Out No longe r eligible based on patient's age to complete this topic Care Teams Vest Baster Relationship Specialty Start Date End Date Beryl Marie MD [address] [place] [address] [address] [place] [phone] PCP - General Internal Medicine 09/12/22
--- OUTSIDE RECORDS SUMMARY | 2025-03-23 11:55 | XMS_ITS | Clinical Summary ---
Author Organization [facility] Address [address] [facility] [address] [place] [address] Phone Care Team Providers Care Safekeeping Clerk Name Role Phone Beryl Marie MD Primary Care Provider Allergies Active Allergy Reactions Criticality Noted Date Comments Saldivar Hives 11/27/2023 Saldivar Flavoring Agent (Non-Screening) 04/30/2017 Ibuprofen 04/30/2017 Morphine 04/30/2017 Other Reaction(s): intolerant...gets sn owed Nsaids Other (see comments) 11/27/2023 Medications SITagliptin (JANUVIA) 50 MG tablet Take 25 mg by mouth 06/26/2023 Active olmesartan (BENICAR) 40 MG tablet Take 40 mg by mouth 01/30/2019 Active montelukast (SINGULAIR) 10 MG tablet Take 10 mg by mouth 01/30/2019 Active metFORMIN (GLUCOPHAGE) 500 MG tablet Take 500 mg by mouth in the morning and 500 mg in the evening. Take with meals. 06/26/2023 Active Melatonin 10 MG chewable tablet Chew 10 mg Act meng cyanocobalamin (VITAMIN B-12) 100 MCG tablet Take 50 mcg by mouth Active atorvastatin (LIPITOR) 40 MG tablet Take 80 mg by mouth 01/30/2019 Active methocarbamol (ROBAXIN) 500 MG tablet 10/30/2023 Active Blood Pressure Monitoring (Adult Blood Pressure Cuff Lg) kitIndications: Stage 3b chronic kidney disease (HCC),Hypertens ion 1 each 1 (one) time each day 1 kit 05/06/2024 Active clopidogrel (PLAVIX) 75 MG tablet Take [...] (one) time each day 90 tablet 3 08/17/2024 5 Active FLUoxetine (PROzac) 20 MG capsule Take 20 mg by mouth in the morning and 20 mg in the evening. 01/08/2025 Active Trulicity 0.75 MG/0.5ML solution auto-injector 1 (one) time per week 11/24/2024 Active Empagliflozin 10 MG tablet Take 10 mg by mouth 1 (one) time each day 90 tablet 11 02/15/2025 6 Active Active Problems Problem Noted Date Diagnosed [...] carcinoma in situ of left breast 017 Encounters Date Type Department Care Team Description 02/15/2025 10:30 AM EDT Office Visit [facility] [address] [phone] Andrzej Valadez MD Stage 3b chronic kidney disease (HCC) (Primary Dx); Proteinuria, not otherwise specified 02/15/2025 Orders [facility] [address] [phone] Andrzej Valadez MD Stage 3b chronic kidney disease (HCC) from Last 3 Months Family History Medical History Relation Comments Diabetes [...] Sign Reading Time Taken Comments Blood Pressure 112/62 02/15/2025 10:18 AM EDT Pulse 77 02/15/2025 10:18 AM EDT Temperature - - Respiratory Rate - - Oxygen Saturation 97% 02/15/2025 10:18 AM EDT Inhaled Oxygen Concentration - - Weight 103 kg (227 lb) 02/15/2025 10:18 AM EDT Height - - Body Mass Index - - Plan of Treatment Upcoming Encounters Date Type Department Care Team (Late st Contact Info) Description 08/27/2025 9:00 AM EST [facility] [address] [phone] Andrzej Valadez MD [address] [phone] Health Maintenance Due Date Last Done Comments [...] Diabetes: Hemoglobin A1C 02/29/2024 11/29/2023 Influenza Vaccine (#1) 2025 05/28/2024 Procedures Procedure Name Priority Date/Time Associated Diagnosis Comments HEMOGLOBIN A1C Routine 11/29/2023 12:30 PM EDT from Last 3 Months or Most Recently Relevant to Health Maintenance Results * (ABNORMAL) Hemoglobin A1c (11/29/2023 12:30 PM EDT) Hemoglobin A1C 8.0(H) 4.8 - 5.6 % [facility] Comment: Prediabetes: 5.7 - 6.4 Diabetes: >6.4 Glycemic control for adults with diabetes: <7.0 11/29/2023 12:3 0 PM EDT 11/29/2023 Narrative [facility] - 12/05/2023 3:06 PM EDT Performed at: 01 - [facility] [id number] Loan Review Manager: Isabel Lancaster MD, Phone: [phone] Andrzej Valadez MD LAB BLOOD ORDERABLES Final Result [facility] from Last 3 Months or Most Recently Relevant to Health Maintenance Insurance [facility] Medicaid Care Teams Safekeeping Clerk Relationship Specialty Start Date End Date Beryl Marie MD [address] [place] [phone] PCP - General Internal Medicine 10/14/23
--- OUTSIDE RECORDS SUMMARY | 2025-03-23 11:55 | XMS_ITS | Clinical Summary ---
Author Organization [facility] Address [address] [place] [address] Phone Care Team Providers Care Heel Compressor Name Role Phone Beryl Marie MD Primary Care Provider Allergies Active Allergy Reactions Criticality Noted Date Comments Ibuprofen 04/30/2017 Morphine 04/30/2017 Pectin 04/30/2017 Medications menthol gel Apply 1 Application topically 1 (one) time each day. 100 g 2 Active Encounters Date Type Department Care Team Description 01/21/2025 10:30 AM EDT Office Visit Orthopedic [facility] [address] [facility] [address] [place] [phone] Surinder Nieves DPM Controlled type 2 diabetes with neuropathy (CMS/[facility] V24, CMS/[facility] V28) (Primary Dx); Left foot pain; Arthritis of both feet; Dermatophytosis, nail from Last 3 Months Surgical History Surgery Date Site/Laterality Comments APPENDECTOMY PROCEDURE:APPENDECTOMY BREAST LUMPECTOMY PROCEDURE:BREAST LUMPECTOMY;COMMENT:left breast OTHER SURGICAL HISTORY PROCEDURE:carpal tunnel left hand TUBAL LIGATION PROCEDURE:TUBAL LIGATION HERNIA REPAIR PROCEDURE:HERNIA REPAIR;COMMENT:left linguinal hernia Medical History Medical History Date Comments Diabetes mellitus (CMS/HCC V24, CMS/[facility] V28) DX:Diabetes mellitus (HCC) Chronic kidney disease DX:Chroni c kidney disease Anemia DX:Anemia Hypertension DX:Hypertension High cholesterol DX:High cholest tod Arthritis DX:Arthritis Depression DX:Depression Breast cancer (CMS/[facility] V24, [facility] V28) DX:Breast cancer ([facility]) Social History Tobacco Use Types Packs/Day Years [...] Care Team (Late st Contact Info) Description 03/29/2025 10:45 AM EDT Office Visit Orthopedic Surgery - [place] [address] [phone] Surinder Nieves, CATA [address] [address] Health Maintenance Due Date Last Done Comments [...] Panel) 08/09/2022 Colorectal Cancer Screening: Colonoscopy 08/09/2022 HIV Screening 08/09/2022 Hepatitis C Screening 08/09/2022 Social Influencers of Health Screening 08/09/2022 Depression Screening 09/02/2024 Diabetes: Annual Urine Albumin-Creatinine Ratio (uACR) 11/18/2024 Diabetes: Blood Sugar Contro l Test (HGBA1C) 11/18/2024 11/29/2023 Hypertension/CHF/CAD Annual BMP Blood Test 11/18/2024 Influenza Vaccine (#1) 2025 4, 06/19/2021, 06/16/2018 HIB Vaccines Aged Out No [...] on patient's age to complete this topic Insurance [place] [address] Care Teams Heel Compressor Relationship Specialty Start Date End Date Beryl Marie MD [address] [facility] 1 [place] [address] PCP - General 09/12/22
== END 2025-03-23 11:31 | disposition home or self-care (01) ==
LOC: HO.HGI 10:43
PROVIDERS: PCP Internal Medicine; Visit Provider Nurse Practitioner Family
DX: K21.9 Gastro-esophageal reflux disease without esophagitis (principal); Z98.890 Other specified postprocedural states; Z87.19 Personal history of other diseases of the digestive system; K74.00 Hepatic fibrosis, unspecified; K76.0 Fatty (change of) liver, not elsewhere classified; Q43.3 Congenital malformations of intestinal fixation
CPT/HCPCS: 99213

== ENCOUNTER → 2025-03-23 10:43 | Outpatient (BNVA) | payer OTHER, SELFPAY | PROVIDERS: PCP Internal Medicine; Visit Provider Nurse Practitioner Family | DX: K21.9 Gastro-esophageal reflux disease without esophagitis (principal); Q43.3 Congenital malformations of intestinal fixation; K74.00 Hepatic fibrosis, unspecified; K76.0 Fatty (change of) liver, not elsewhere classified; Z98.890 Other specified postprocedural states; Z87.19 Personal history of other diseases of the digestive system | CPT/HCPCS: 99212 ==

== ENCOUNTER 2025-07-01 12:00 | Outpatient (AMB) | payer OTHER, SELFPAY ==
[2025-07-01 12:30] VITALS: BP 124/84; PULSE 81; BMI 40.4
--- NOTE | 2025-07-01 12:30 | A.OFFVIS_ITS ---
Vital Signs 07/01/25 12:30 Height 5 ft 5 in Weight 242 lb 8.136 oz BMI 40.4 BP 124/84 Blood Pressure Location Lt brachial Position Sitting Pulse 81 Intake Visit Reasons: 6 mth f/up+ clear for colonoscopy Intake Note: 6 month follow-up with ekg and colonscopy clearance Centrifugal Spinner Required: No Allergies lockett flavor Allergy (Intermediate, Verified 03/23/25 11:07) Hives morphine Allergy (Intermediate, Verified 03/23/25 11:07) bradycardia NSAIDS (Non-Steroidal Anti-Inflamma Allergy (Intermediate, Verified 03/23/25 11:07) tachycardia Medication List - Last Reconciled 07/01/25 by Victor Hugo Hart MD amlodipine 5 mg PO DAILY aspirin 81 mg PO DAILY atorvastatin 80 mg PO DAILY blood sugar diagnostic (FreeStyle Lite Strips) As directed clopidogrel 75 mg PO DAILY cyanocobalamin (vitamin B-12) 1,000 mcg PO DAILY dulaglutide (Trulicity) 0.75 mg subcut QWEEK empagliflozin (Jardiance) 10 mg PO DAILY famotidine 20 mg PO BID fluoxetine 20 mg PO BID melatonin orally once per day; 10 mg metformin ER 500 mg PO DAILY methocarbamol 500 mg PO BEDTIME montelukast 10 mg PO BEDTIME nitroglycerin 0.4 mg sublingual Q5M PRN olmesartan 40 mg PO DAILY omeprazole 20 mg PO DAILY simethicone (Gas Relief (simethicone)) 250 mg PO DAILY PRN sitagliptin phosphate (Januvia) 50 mg PO DAILY HPI Comments Details: Gay comes for follow-up after 6 months. She has had no new cardiac symptoms. She today says that prior to her stenting last year she was having retrosternal chest tightness/pressure which she describes as angina. She is not having that is symptom anymore. She is scheduled to undergo colonoscopy although date has not been decided. She seeing the trial team next week to decide about her dual antiplatelet therapy. He has been more than a year since her procedure and she can come off her Plavix as per the usual timeframe although she is part of a clinical investigation and should wait for the investigation team to assess that. She is taking all her medications. No recent lipid panel. She says she works many hours and takes care of her family in his not much time to exercise. Denies any exertional chest pain. [facility] Medical History CAD (coronary artery disease) Steatosis, liver BMI 37.0-37.9, adult Anemia Arthritis History of tachycardia Chronic renal insufficiency History of neuropathy Asthma Preprocedural examination BMI 38.0-38.9,adult Obesity Constipation GERD (gastroesophageal reflux disease) Depression Hyperlipidemia Hypertension Insulin dependent diabetes mellitus Morbid obesity Insomnia Surgical History History of percutaneous coronary intervention H/O bariatric surgery History of sleeve gastrectomy Hx of breast lump removal Hx of appendectomy Hx of tubal ligation Hx of left inguinal hernia repair Hx of thumb surgery History of carpal tunnel release H/O colonoscopy Family History Mother Diabetes Heart disease Social History Are you a primary manager care to a significant other at home: No Do you presently have visiting nurse or other home services: Yes Alcohol intake: never Patient Tobacco Use Status: Former Tobacco user Tobacco use type: Cigarette Advance Directives Date on File: 03/09/21 service: No Current occupational status: unemployed Review of Systems Const Denies chills, Denies fatigue, Denies fever(s), Denies frequent falls, Denies weakness, Denies weight gain and Denies weight loss ENT Denies dizziness Card Denies chest pain, Denies leg edema, Denies lightheadedness, Denies palpitations, Denies dyspnea, Denies dyspnea on exertion, Denies orthopnea and Denies other (loss of consciousness) Resp Denies cough, Denies dyspnea and Denies dyspnea on exertion GI Denies hematochezia and Denies change in stool character Musc Denies abnormal gait, Denies muscle weakness, Denies numbness, Denies radiating pain into limb and Denies tingling Neuro Denies abnormal gait, Denies dizziness, Denies frequent falls, Denies numbness, Denies tingling and Denies weakness Endo Denies fatigue and Denies palpitations Physical Exam Vital Signs: Last Vital Signs Pulse 81 07/01/25 12:30 BP 124/84 07/01/25 12:30 BMI result Body Mass Index 40.4 Const General: cooperative, comfortable, no acute distress, alert, awake and Physically active Nutritional Appearance: obese Orientation/consciousness: patient oriented x3 Limitations: no limitations HEENT Head: Yes normocephalic and Yes atraumatic Neck Neck: Yes trachea midline, Yes supple and Yes no JVD Resp Effort & Inspection: normal respiratory effort Auscultation: clear to auscultation bilaterally Cardio Jugular venous distension: no JVD Palpation: normal PMI Rate: regular rate Rhythm: regular rhythm Heart sounds: S1 normal heart sound present, S2 normal heart sound present, no click, no gallops, no murmurs and no rubs GI Auscultation: normal bowel sounds Skin General skin exam: no rashes or lesions noted Neuro General: patient oriented x3 and no focal motor deficits Extrem General: Yes no clubbing, cyanosis or edema Psych Appearance: grossly normal Affect: Anxious affect present Office Procedures EKG Details: EKGs shows normal sinus rhythm with normal EKGs 18425-[id number], Complete Assessment & Plan Assessment & Plan (1) CAD (coronary artery disease): Code(s): I25.10 - Atherosclerotic heart disease of [place] coronary artery without angina pectoris Category: Medical Plan: CAD with what appears to be prior stenting of the RCA as a part of a clinical investigation. She has no symptoms at current point in time. She is currently on dual antiplatelet therapy and clinically doing well. We discussed about management of atherosclerosis in details. She can come off her Plavix therapy as per usual clinical data. Will wait further investigation team to decide that. Continue participate in regular physical activity as tolerated. Continue aggressive risk factor modification. Goal LDL less than 60 mg/dL. Encouraged to participate in weight loss as well as aggressive blood pressure control. Advised lipid panel in near future. (2) Hypertension: Code(s): I10 - Essential (primary) hypertension Category: Medical Plan: Hypertension which is currently well optimized advised to monitor blood pressure at home maintain a log. Goal blood pressure less than 130/84. Low-salt diet was discussed. Continue participate in aggressive weight loss and exercise program. (3) Preoperative cardiovascular examination: Code(s): Z01.810 - Encounter for preprocedural cardiovascular examination Plan: Preoperative cardiovascular exam in this middle-aged woman with prior CAD. She is to undergo colonoscopy which is a low risk procedure. She is currently optimized from cardiac perspective undergo this procedure with low risk. She still on dual antiplatelet therapy and her antiplatelet therapy will be decided by the investigative team at [facility] for her clinical trial. Once she is off dual antiplatelet therapy, she can pursue with colonoscopy procedure. Will follow up in the clinic in 1 year's time, sooner PRN. Thank you for allowing me to partake in her care Orders: Orders Lipid Panel Today I25.10 - Atherosclerotic heart disease of [place] coronary artery without angina pectoris Coding Level of Care Code Est Pt Level 4 (42850) Complex EM visit Add On G2211 Diagnoses CAD (coronary artery disease) I25.10 Hypertension I10 Preoperative cardiovascular examination Z01.810 CPT Codes EKG - CPT: 21463-Qrjyorjwsemqvzhws, Complete ([id number])
--- OUTSIDE RECORDS SUMMARY | 2025-07-01 14:58 | XMS_ITS | Clinical Summary ---
Author Organization [facility] Address [address] [place] [address] Care Team Providers Care Aluminum Sheet Cutter Name Role Phone Beryl Marie MD Primary [...] Date Diagnosed Date Neoplasm of left breast, [facility] tumor staging category Tis: lobular [...] age to complete this topic Care Teams Aluminum Sheet Cutter Relationship Specialty Start Date End Date Beryl Marie MD [address] [place] [address] [address] [place] [address] PCP - General Internal Medicine 09/12/22
--- OUTSIDE RECORDS SUMMARY | 2025-07-01 14:58 | XMS_ITS | Clinical Summary ---
Author Organization [address] [facility] Address [address] [place] [address] Phone Care Team Providers Care Senior Construction Project Manager Name Role Phone Beryl Marie MD Primary Care Provider Allergies Active Allergy Reactions Criticality Noted Date Comments Ibuprofen 04/30/2017 Morphine 04/30/2017 Pectin 04/30/2017 Medications menthol gel Apply 1 Application topically 1 (one) time each day. 100 g 2 Active Encounters Date Type Department Care Team Description 06/08/2025 6:42 PM EDT - 06/08/2025 11:59 PM EDT Hospital Encounter [facility] MRI [address] [place] [phone] Capsulitis of left foot; Peroneal tendinitis of left lower extremity Discharge Disposition: Home or Self Care 06/01/2025 11:00 AM EDT Office Visit Orthopedic Surgery - [place] [address] [facility] [address] [place] [phone] Surinder Nieves DPM Controlled type 2 diabetes with neuropathy (CMS/HCC V24, CMS/HCC V28) (Primary Dx); Arthritis of both feet; Capsulitis of left foot; Peroneal tendinitis of left lower extremity from Last 3 Months Surgical History Surgery Date Site/Laterality Comments APPENDECTOMY PROCEDURE:APPENDECTOMY BREAST LUMPECTOMY PROCEDURE:BREAST LUMPECTOMY;COMMENT:left breast OTHER SURGICAL HISTORY PROCEDURE:carpal tunnel left hand TUBAL LIGATION PROCEDURE:TUBAL LIGATION HERNIA REPAIR PROCEDURE:HERNIA REPAIR;COMMENT:left linguinal hernia Medical History Medical History Date Comments Diabetes mellitus ([facility]/HCC V24, [facility] V28) DX:Diabetes mellitus (HCC) Chronic kidney disease DX:Chroni c kidney disease Anemia DX:Anemia Hypertension DX:Hypertension High cholesterol DX:High cholest tod Arthritis DX:Arthritis Depression DX:Depression Breast cancer (CMS/HCC V24, CMS/HCC V28) DX:Breast cancer (HCC) Social History Tobacco [...] Care Team (Late st Contact Info) Description 08/03/2025 10:45 AM EST Office Visit Orthopedic Surgery - [address] [address] Surinder Nieves, CATA [address] [place] [phone] Health Maintenance Due Date Last Done Comments Breast Cancer Screening 1967 Colorectal Cancer Screening: Colonoscopy 1967 Diabetes: Annual GFR (Glomerular Filtration Rate) 1967 Diabetes: Annual Foot Exam 1977 Diabetes: Annual Retina Eye Exam 1977 DTaP,Tdap,and Td Vaccines (1 - Tdap) 1986 Hepatitis B Vaccines (1 of 3 - 19+ 3-dose series) 1986 Zoster Vaccines (1 of 2) 1986 Cervical Cancer Screening: P ap Smear 1988 RSV Immunization Adult Patients (1 - Risk 50-74 years 1-dose series) 2017 Pneumococcal Vaccine: 50+ Years (2 of 2 - PCV) 06/16/2019 06/16/2018 COVID-19 Vaccine (2 - Pfizer risk series) 07/10/2021 06/19/2021 Cholesterol Screening (Lipid Panel) 08/09/2022 HIV Screening 08/09/2022 Hepatitis C Screening 08/09/2022 Social Influencers of Health Screening 08/09/2022 Depression Screening 09/02/2024 Diabetes: Annual Urine Albumin-Creatinine Ratio (uACR) 11/18/2024 Diabetes: Blood Sugar Contro l Test (HGBA1C) 11/18/2024 11/29/2023 Hypertension/CHF/CAD Annual BMP Blood Test 11/18/2024 Influenza Vaccine (#1) 2025 , 06/19/2021, 06/16/2018 HIB Vaccines Aged Out No [...] Procedure Name Priority Date/Time Associated Diagnosis Comments MR FOOT WO CONTRAST LEFT Routine 06/08/2025 8:25 PM EDT Capsulitis of left foot Peroneal tendinitis of left lower extremity from Last 3 Months Results * MR Foot wo Contrast Left (06/08/2025 8:25 PM EDT) Anatomical Region Laterality Modality Lower Extremities, Foot Left Magnetic Resonance 06/09/2025 4:40 AM EDT Impressions 06/09/2025 4:47 AM EDT Abnormal bone marrow signal and morphology of the left foot which may represent Charcot arthropathy and/or superimposed osteomyelitis. -------- FINAL REPORT -------- Dictated By: Ashlie King Dictated Date: 06/09/2025 04:40 ET Assigned Physician: Ashlie King Reviewed and Electronically Signed By: Ashlie King Signed Date: 06/09/2025 04:47 ET Workstation ID: [id number] Transcribed By: Self Edit Transcribed Date: 06/09/2025 04:40 ET Narrative 06/09/2025 4:47 AM EDT INDICATION: Nonresolving pain to the left medial foot COMPARISON: None TECHNIQUE: Multiplanar, multisequence MRI was performed of the left foot without intravenous contrast FINDINGS: Bone: Abnormal bone marrow signal of the navicular bone, cuneiforms and the second through fifth metatarsals with T1 hypointense, T2 fat sat hyperintense signal. Dark signal with superimposed deformity and cystic change involving the cuboid bone with cortical deformity and irregularity of the fourth and fifth TMT's and to a lesser extent the second and third TMT's. These constellation of findings may represent Charcot arthropathy and/or superimposed osteomyelitis. Soft Tissues: Extensive subcutaneous edema of the left foot. Left ankle joint effusion. Posterior plantar calcaneal spur with plantaris fasciitis. Achilles tendinosis. Procedure Note Ashlie King MD - 06/09/2025 INDICATION: Nonresolving pain to the left medial foot COMPARISON: None TECHNIQUE: Multiplanar, multisequence MRI was performed of the left footwithout intravenous contrast FINDINGS: Bone: Abnormal bone marrow signal of the navicular bone, cuneiforms andthe second through fifth metatarsals with T1 hypointense, T2 fat sathyperintense signal. Dark signal with superimposed deformity and cysticchange involving the cuboid bone with cortical deformity and irregularityof the fourth and fifth TMT's and to a lesser extent the second and thirdTMT's. These constellation of findings may represent Charcot arthropathyand/or superimposed osteomyelitis. Soft Tissues: Extensive subcutaneous edema of the left foot. Left anklejoint effusion. Posterior plantar calcaneal spur with plantaris fasciitis. Achillestendinosis. IMPRESSION: Abnormal bone marrow signal and morphology of the left foot which mayrepresent Charcot arthropathy and/or superimposed osteomyelitis. -------- FINAL REPORT -------- Dictated By: Ashlie King Dictated Date: 06/09/2025 04:40 ET Assigned Physician: Ashlie King Reviewed and Electronically Signed By: Ashlie King Signed Date: 06/09/2025 04:47 ET Workstation ID: [id number] Transcribed By: Self Edit Transcribed Date: 06/09/2025 04:40 ET Surinder Nieves DPAvni IMG MRI PROCEDURES Final Re sult from Last 3 Months Insurance [facility] [employer] Care Teams Senior Construction Project Manager Relationship Specialty Start Date End Date Beryl Marie MD [address] [place] [address] [address] [place] [address] PCP - General 09/12/22
--- OUTSIDE RECORDS SUMMARY | 2025-07-01 14:58 | XMS_ITS | Clinical Summary ---
Author Organization [facility] Address [address] [facility] [address] [place] [address] Phone Care Team Providers Care Instrument Repairer Helper Name Role Phone Beryl Marie MD Primary Care Provider [phone] Allergies Active Allergy Reactions Criticality Noted Date [...] Office Visit [facility] [address] [address] Andrzej Valadez MD [address] [address] Health Maintenance Due Date Last Done Comments [...] 3:06 PM EDT Performed at: 01 - [facility] [address] [id number] Marine Cargo Surveyor: Isabel Lancaster MD, Phone: [phone] Andrzej Valadez MD LAB BLOOD ORDERABLES Final Result [facility] from Last 3 Months or Most Recently Relevant to Health Maintenance Insurance [facility] Medicaid Care Teams Instrument Repairer Helper Relationship Specialty Start Date End Date Beryl Marie MD [address] [address] PCP - General Internal Medicine 10/14/23
== END 2025-07-01 12:57 | disposition home or self-care (01) ==
LOC: HO.HCS 12:00
PROVIDERS: PCP Internal Medicine; Visit Provider Internal Medicine Cardiovascular Disease
DX: I25.10 Atherosclerotic heart disease of native coronary artery without angina pectoris (principal); I10 Essential (primary) hypertension; Z01.810 Encounter for preprocedural cardiovascular examination
CPT/HCPCS: 93010; 99214

== ENCOUNTER → 2025-07-01 12:00 | Outpatient (BNVA) | payer OTHER, SELFPAY | PROVIDERS: PCP Internal Medicine; Visit Provider Internal Medicine Cardiovascular Disease | DX: Z01.810 Encounter for preprocedural cardiovascular examination (principal); Z12.11 Encounter for screening for malignant neoplasm of colon; I25.10 Atherosclerotic heart disease of native coronary artery without angina pectoris; I10 Essential (primary) hypertension; Z95.5 Presence of coronary angioplasty implant and graft | CPT/HCPCS: 93005; 99212 ==

== ENCOUNTER 2025-07-06 10:42 | Outpatient (REF) | payer OTHER, SELFPAY ==
[2025-07-06 11:51] LABS: Cholesterol 163 mg/dL (<200); HDL Cholesterol 60 mg/dL (>40); Triglycerides 107 mg/dL (<150)
--- OUTSIDE RECORDS SUMMARY | 2025-07-06 12:43 | XMS_ITS | Clinical Summary ---
Author Organization [facility] Address [address] [place] [address] Phone Care Team Providers Care Grief Counselor Name Role Phone Beryl Marie MD Primary Care Provider Allergies Active Allergy Reactions Criticality Noted Date Comments Ibuprofen 04/30/2017 Morphine 04/30/2017 Pectin 04/30/2017 Medications menthol gel Apply 1 Application topically 1 (one) time each day. 100 g 2 Active Encounters Date Type Department Care Team Description 06/08/2025 6:42 PM EDT - 06/08/2025 11:59 PM EDT Hospital Encounter [facility] MRI [address] [place] [phone] Capsulitis of left foot; Peroneal tendinitis of left lower extremity Discharge Disposition: Home or Self Care 06/01/2025 11:00 AM EDT Office Visit Orthopedic Surgery [facility] [address] [facility] [address] [place] [phone] Surinder Nieves DPM Controlled type 2 diabetes [...] History Medical History Date Comments Diabetes mellitus ([facility]/HCC V24, [facility] V28) DX:Diabetes mellitus (HCC) Chronic kidney disease [...] AM EST Office Visit Orthopedic Surgery - [address] [address] Surinder Nieves, CATA [address] [place] [phone] Health Maintenance Due Date Last Done [...] Signed Date: 06/09/2025 04:47 ET Workstation ID: [id number] Transcribed By: Self Edit Transcribed Date: 06/09/2025 [...] Signed Date: 06/09/2025 04:47 ET Workstation ID: [id number] Transcribed By: Self Edit Transcribed Date: 06/09/2025 04:40 ET Surinder Nieves DPAvni IMG MRI PROCEDURES Final Re sult from Last 3 Months Insurance [facility] [employer] PL[facility] Care Teams Grief Counselor Relationship Specialty Start Date End Date Beryl Marie MD [address] [place] [address] 1 [place] [address] PCP - General 09/12/22
--- OUTSIDE RECORDS SUMMARY | 2025-07-06 12:43 | XMS_ITS | Clinical Summary ---
Author Organization [facility] Address [address] [place] [address] Care Team Providers Care Teacher Of Gifted Students Name Role Phone Beryl Marie MD Primary [...] Date Diagnosed Date Neoplasm of left breast, [facility] tumor staging category Tis: lobular [...] age to complete this topic Care Teams Teacher Of Gifted Students Relationship Specialty Start Date End Date Beryl Marie MD [address] [place] [address] [address] [place] [phone] PCP - General Internal Medicine 09/12/22
== END 2025-07-06 10:43 | disposition home or self-care (01) ==
LOC: HO.LAB 10:42
PROVIDERS: PCP Internal Medicine; Visit Provider Internal Medicine Cardiovascular Disease
DX: I25.10 Atherosclerotic heart disease of native coronary artery without angina pectoris (principal)
CPT/HCPCS: 36415; 80061

== ENCOUNTER 2025-07-23 10:32 | Outpatient (AMB) | payer OTHER, SELFPAY ==
--- NOTE | 2025-07-23 10:46 | A.OFFVIS_ITS ---
Vital Signs 07/23/25 10:48 Height 5 ft 5 in Weight 240 lb BMI 39.9 BP 128/78 Blood Pressure Location Lt brachial Position Sitting Pulse 78 Pulse Source Pulse Oximeter Pulse Oximetry (%) 100 Oxygen Delivery Method Room Air Intake Visit Reasons: 4 month follow up Intake Note: Est pt for mgmt of GERD + CIC. CC: Pt denies any new GI concerns or sx at this time. Confirms she is taking her currently Rx'd therapies w/o complications. Orthodontic Lab Technician Required: No Accompanied by: Self / Same As Patient Allergies lockett flavor Allergy (Intermediate, Verified 07/23/25 10:47) Hives morphine Allergy (Intermediate, Verified 07/23/25 10:47) bradycardia NSAIDS (Non-Steroidal Anti-Inflamma Allergy (Intermediate, Verified 07/23/25 10:47) tachycardia HPI HPI 4 month follow up: Details: LAST VISIT GERD (gastroesophageal reflux disease) Status post repair of paraesophageal diaphragmatic hernia Liver fibrosis Steatosis, liver Congenital intra-abdominal adhesions Plan Continue omeprazole daily. Avoid dietary triggers and 8 and snacking. Staying upright for minimum 3 hours after meals discussed with patient patient was encouraged to eat smaller meals and more often. Increase fluid intake and activity to promote better bowel motility. Patient has appointment with unix systems administrator in June, message sent to custodial officer to add clearance to that appointment. Patient will return in the office in July. She will call us if she will have any GI concerning symptoms. Patient is agreeable to current plan of care and verbalizes understanding of instructions. She was given the opportunity to ask questions and all questions answered TODAY'S VISIT: Patient is here today to discuss colonoscopy. She was cleared by Cardiology. No longer is on Plavix, patient is on low-dose aspirin daily. Patient denies any cardiac or respiratory symptoms. Patient reports occasional postprandial diarrhea depending on what she eats. Patient denies any issues with anesthesia in the past. No history of sleep apnea. Patient reports acid reflux for the most part is controlled with PPI. She denies any nausea or vomiting. Denies any melena, hematochezia, unintentional weight loss or ribbon like stools. [facility] Medical History CAD (coronary artery disease) Steatosis, liver BMI 37.0-37.9, adult Anemia Arthritis History of tachycardia Chronic renal insufficiency History of neuropathy Asthma Preprocedural examination BMI 38.0-38.9,adult Obesity Constipation GERD (gastroesophageal reflux disease) Depression Hyperlipidemia Hypertension Insulin dependent diabetes mellitus Morbid obesity Insomnia Surgical History History of percutaneous coronary intervention H/O bariatric surgery History of sleeve gastrectomy Hx of breast lump removal Hx of appendectomy Hx of tubal ligation Hx of left inguinal hernia repair Hx of thumb surgery History of carpal tunnel release H/O colonoscopy Family History Mother Diabetes Heart disease Social History Are you a primary healthcare marketer to a significant other at home: No Do you presently have visiting nurse or other home services: Yes Alcohol intake: never Patient Tobacco Use Status: Former Tobacco user Tobacco use type: Cigarette Advance Directives Date on File: 03/09/21 service: No Current occupational status: unemployed Review of Systems Const Denies weight gain and Denies weight loss ENT Reports no additional complaints, Denies dysphagia and Denies odynophagia Card Reports no additional complaints Resp Reports no additional complaints GI Denies abdominal pain, Denies belching, Denies melena, Denies bloating, Denies change in bowel habits, Denies dysphagia, Denies excessive flatus, Denies dyspepsia, Denies heartburn, Denies diarrhea, Denies loose stools, Denies nausea, Denies odynophagia and Denies vomiting Musc Reports no additional complaints Neuro Reports no additional complaints Psych Reports no additional complaints Endo Reports no additional complaints Physical Exam Vital Signs: Last Vital Signs Pulse 78 07/23/25 10:48 BP 128/78 07/23/25 10:48 Pulse Ox 100 07/23/25 10:48 Oxygen Delivery Method Room Air 07/23/25 10:48 BMI result Body Mass Index 39.9 Const General: healthy appearing and no acute distress Nutritional Appearance: obese Orientation/consciousness: patient oriented x3 Resp Effort & Inspection: normal respiratory effort, able to speak in complete sentences, no tracheal deviation and symmetric chest movement Auscultation: clear to auscultation bilaterally Cardio Rate: regular rate GI Inspection: Yes normal to inspection and No distended Palpation (GI): Soft to palpation, not firm, nontender and No hepatosplenomegaly present Auscultation: normal bowel sounds General: Yes no CVA tenderness Back/Spine/Pelvis Back: no CVA tenderness Skin General skin exam: elasticity normal, turgor normal and dry skin Neuro General: patient oriented x3 Psych Appearance: grossly normal Mental Status: mental status grossly normal Assessment & Plan Assessment & Plan (1) GERD (gastroesophageal reflux disease): Code(s): K21.9 - Gastro-esophageal reflux disease without esophagitis Category: Medical Qualifiers: Esophagitis presence: esophagitis presence not specified Qualified Code(s): K21.9 - Gastro-esophageal reflux disease without esophagitis (2) Steatosis, liver: Code(s): K76.0 - Fatty (change of) liver, not elsewhere classified Category: Medical (3) Screen for colon cancer: Code(s): Z12.11 - Encounter for screening for malignant neoplasm of colon Plan Ordered pays for upper endoscopy and colonoscopy. Patient will continue taking omeprazole daily. Patient was encouraged to avoid dietary triggers in late night snacking. Staying upright for minimum 3 hours after meals discussed with patient. Patient was cleared for colonoscopy. Patient is on low-dose aspirin. States that no longer she is taking Plavix. Patient denies any cardiac or respiratory symptoms. Encouraged to take fiber with free in probiotic to help with loose stools and postprandial diarrhea. However patient will be sent extra Dulcolax to take 1 week before procedure to make sure that she empties completely. What to expect before, during and after procedure discussed with patient. Stressed the importance of good bowel prep and clear liquid diet day before procedure. Patient will follow-up with us after the procedure. She was encouraged to call us if she will have any GI concerning symptoms. She is agreeable to this plan and verbalizes understanding of instructions. She was given the opportunity to ask questions and all questions answered. Thank you for allowing me to participate in her care Orders: Referrals GI Procedure Notification K21.9 - Gastro-esophageal reflux disease without esophagitis, Z12.11 - Encounter for screening for malignant neoplasm of colon Medications: New polyethylene glycol 3350 (Miralax) As directed by gastroenterology department at [facility] 238 grams PO ONCE 238 grams 0RF Z12.11 - Encounter for screening for malignant neoplasm of colon bisacodyl (Dulcolax (bisacodyl)) Start taking 2 tablet every night 7 days before the procedure and 1 day before procedure take 4 tablets at noon time followed by MiraLax prep 10 mg (2 x 5 mg) PO BEDTIME 16 tabs 0RF Z12.11 - Encounter for screening for malignant neoplasm of colon Coding Level of Care Code Est Pt Level 4 (88781) Complex visit Add On G2211 Diagnoses Gastroesophageal reflux disease, unspecified whether esophagitis present K21.9 Esophagitis presence: esophagitis presence not specified Steatosis, liver K76.0 Screen for colon cancer Z12.11 Time Spent (min) 35 Comment 25 minutes spent with patient and additional 10 minutes spent reviewing her records
[2025-07-23 10:48] VITALS: BP 128/78; PULSE 78; O2SAT 100; BMI 39.9
--- OUTSIDE RECORDS SUMMARY | 2025-07-23 11:16 | XMS_ITS | Clinical Summary ---
Author Organization [facility] Address [address] [place] [address] Care Team Providers Care Hat Forming Machine Operator Name Role Phone Beryl Marie MD [...] Date Diagnosed Date Neoplasm of left breast, [facility] tumor staging category Tis: lobular carcinoma [...] age to complete this topic Care Teams Hat Forming Machine Operator Relationship Specialty Start Date End Date Beryl Marie MD [address] [place] [address] [address] [place] [phone] PCP - General Internal Medicine 09/12/22
--- OUTSIDE RECORDS SUMMARY | 2025-07-23 11:16 | XMS_ITS | Clinical Summary ---
Author Organization [facility] Address [address] [place] [address] Phone Care Team Providers Care Sustainability Engineer Name Role Phone Beryl Marie MD Primary Care Provider Allergies Active Allergy Reactions Criticality Noted Date Comments Ibuprofen 04/30/2017 Morphine 04/30/2017 Pectin 04/30/2017 Medications menthol gel Apply 1 Application topically 1 (one) time each day. 100 g 2 Active Encounters Date Type Department Care Team Description 06/08/2025 6:42 PM EDT - 06/08/2025 11:59 PM EDT Hospital Encounter [facility] MRI [address] [place] [phone] Capsulitis of left foot; Peroneal tendinitis of left lower extremity Discharge Disposition: Home or Self Care 06/01/2025 11:00 AM EDT Office Visit Orthopedic [facility] [address] [facility] [address] [place] [phone] Surinder Nieves DPM Controlled type 2 diabetes [...] History Medical History Date Comments Diabetes mellitus ([facility]/HCC V24, [facility] V28) DX:Diabetes mellitus (HCC) Chronic kidney disease DX:Chroni c kidney disease Anemia DX:Anemia Hypertension DX:Hypertension High cholesterol DX:High cholest tod Arthritis DX:Arthritis Depression DX:Depression Breast cancer (CMS/HCC V24, [facility] V28) DX:Breast cancer (HCC) Social History Tobacco [...] AM EST Office Visit Orthopedic Surgery - [place] [id number] [phone] Surinder Nieves DPM [address] [address] Health Maintenance Due Date Last Done Comments [...] Signed Date: 06/09/2025 04:47 ET Workstation ID: [id number] Transcribed By: Self Edit Transcribed Date: 06/09/2025 [...] Signed Date: 06/09/2025 04:47 ET Workstation ID: [id number] Transcribed By: Self Edit Transcribed Date: 06/09/2025 04:40 ET Surinder Nieves DPAvni IMG MRI PROCEDURES Final Re sult from Last 3 Months Insurance [facility] [employer] Care Teams Sustainability Engineer Relationship Specialty Start Date End Date Beryl Marie MD [address] [place] [address] [address] [place] [address] PCP - General 09/12/22
--- OUTSIDE RECORDS SUMMARY | 2025-07-23 11:16 | XMS_ITS | Clinical Summary ---
Author Organization [facility] Address [address] [place] [address] Care Team Providers Care Sales Service Assistant Name Role Phone Warren Marie MD Primary Care Provider Александр Rojo MD Unavailable Allergies Active Allergy Reactions Severity Noted Date Comments Morphine Sulfate 02/04/2019 Medications Medication Sig Dispensed Refills Start Date End Date Status chlorthalidone (HYGROTEN) 25 MG tablet Take 25 mg by mouth daily. 0 Active citalopram (CELEXA) 40 MG tablet Take 40 mg by mouth daily. 0 Active Multiple Vitamins-Minerals (WOMENS DAILY FORM/FA/CA/FE OR) Take by mouth. 0 Act meng olmesartan (BENICAR) 40 MG tablet Take 40 mg by mouth daily. 0 Active carvedilol (COREG) 12.5 MG tablet Take 12.5 mg by mouth 2 times daily (with meals). 0 Active insulin glargine (LANTUS) 100 UNIT/ML injection Inject 30 Units into the skin at bedtime. Bid 0 Active atorvastatin (LIPITOR) 20 MG tablet Take 20 mg by mouth daily. 0 Active Vitamins A & D (VITAMIN A & D) 5000-400 UNITS Cap Take by mouth. 0 Ac tive medroxyPROGESTERone (PROVERA) 10 MG tablet Take 1 Tab by mouth daily for 30 days. Tab po daily 30 Tab 0 01/20/2019 Active oxycodone (OXY-IR) 5 MG capsule Take 5 mg by mouth every 4 hours as needed. 0 Active medroxyPROGESTERone (PROVERA) 10 MG tablet TAKE 1 TAB BY MOUTH DAILY FOR 30 DAYS 30 Tab 0 02/16/2019 Active Social History Tobacco Use Types Packs/Day Years Used Date Smoking Tobacco: Former Smokeless Tobacco: Former Alcohol Use Standard Drinks/Week Comments Yes 0 (1 standard drink = 0.6 oz pur e alcohol) past Sex Assigned at Date Recorded Not on file Last Filed Vital Signs Vital Sign Reading Time Taken Comments Blood Pressure 124/68 03/17/2019 1:41 PM EDT Pulse 88 03/17/2019 1:41 PM EDT Temperature - - Respiratory Rate 16 03/17/2019 1:41 PM EDT Oxygen Saturation - - Inhaled Oxygen Concentration - - Weight 119.7 kg (263 lb 12.8 oz) 03/17/2019 1:41 PM EDT Height 165.1 cm (5' 5 ) 12/24/2018 12:5 7 PM EDT Body Mass Index 43.9 12/24/2018 12:57 PM EDT Plan of Treatment Health Maintenance Due Date Last Done Comments Covid-19 Vaccine (#1) 1967 HEPATITIS C SCREENING 1985 DTAP/TDAP/TD (1 - Tdap) 1986 CHOLESTEROL SCREENING 1987 CERVICAL CANCER SCREENING 1988 BASELINE HEALTH EXAM 40-64 2007 MAMMOGRAM 2007 COLON CANCER SCREENING 2017 SHINGLES VACCINE (1 of 2) 2017 BMI CHECK/ADVISE 09/02/2024 12/24/2018 DEPRESSION SCREENING/FOLLOWUP 09/02/2024 SOCIAL NEEDS SCREENING 09/02/2024 INFLUENZA (#1) 2025 06/16/2018 PNEUMOCOCCAL VACCINE FOR HIGH RISK PATIENTS (#1) 04/1706/16/2018 Care Teams Sales Service Assistant Relationship Specialty Start Date End Date Warren Marie MD PCP - General Internal Medicine 12/23/18 Александр Garcia MD [address] [place] [phone] 12/17/18
--- OUTSIDE RECORDS SUMMARY | 2025-07-23 11:16 | XMS_ITS | Clinical Summary ---
Author Organization [facility] Address [address] [facility] [address] [place] [address] Phone Care Team Providers Care Director Automotive Name Role Phone Beryl Marie MD Primary [...] Care Team (Late st Contact Info) Description 08/17/2025 Orders Only [facility] [address] [phone] Andrzej Valadez MD [address] [phone] Stage 3b chronic kidney disease (HCC); Proteinuria, not otherwise specified 08/27/2025 9:00 AM EST Office Visit [facility] [address] [phone] Andrzej Valadez MD [address] [phone] Health Maintenance Due Date Last Done Comments [...] PM EDT Performed at: 01 - [facility] [address] [id number] Community Service Director: Isabel Lancaster MD, Phone: [phone] Andrzej Valadez MD LAB BLOOD ORDERABLES Final Result [facility] from Last 3 Months or Most Recently Relevant to Health Maintenance Insurance [facility] Medicaid Care Teams Director Automotive Relationship Specialty Start Date End Date Beryl Marie MD [address] [place] [address] [address] [place] [phone] PCP - General Internal Medicine 10/14/23
--- OUTSIDE RECORDS SUMMARY | 2025-07-23 11:16 | XMS_ITS | Encounter Summary ---
Author Organization [facility] Address [address] [place] [address] Care Team Providers Care Web Support Engineer Name Role Phone Warren Marie MD Primary Care Provider Reba Александр Barrios MD Unavailable Encounter Details Date Type Department Care Team Description 12/26/2018 Release of Information Medical Records [address] [place] [id number] Abstract, Provider Social History Tobacco Use Types Packs/Day Years Used Date Smoking Tobacco: Former Smokeless Tobacco: Former Alcohol Use Standard Drinks/Week Comments Yes 0 (1 standard drink = 0.6 oz pur e alcohol) past Sex Assigned at Date Recorded Not on file documented as of this encounter Nursing Notes * Nalini Larios - 12/26/2018 10:45 AM EDT documented in this encounter Plan of Treatment Not on file documented as of this encounter Visit Diagnoses Not on filedocumented in this encounter Care Teams Web Support Engineer Relationship Specialty Start Date End Date Warren Marie MD PCP - General Internal Medicine 12/23/18 Александр Garcia MD [address] [place] [phone] 12/17/18 documented as of this encounter
== END 2025-07-23 11:20 | disposition home or self-care (01) ==
LOC: HO.HGI 10:33
PROVIDERS: PCP Internal Medicine; Visit Provider Nurse Practitioner Family
DX: Z01.818 Encounter for other preprocedural examination (principal); Z12.11 Encounter for screening for malignant neoplasm of colon; K21.9 Gastro-esophageal reflux disease without esophagitis; K76.0 Fatty (change of) liver, not elsewhere classified
CPT/HCPCS: 99214

== ENCOUNTER → 2025-07-23 10:32 | Outpatient (BNVA) | payer OTHER, SELFPAY | PROVIDERS: PCP Internal Medicine; Visit Provider Nurse Practitioner Family | DX: Z01.818 Encounter for other preprocedural examination (principal); K21.9 Gastro-esophageal reflux disease without esophagitis | CPT/HCPCS: 99212 ==